=== PATIENT | male | born 1960 | race Caucasian/White ===

== ENCOUNTER 2017-08-15 00:39 | Emergency (ER) | payer OTHER ==
[2017-08-15 00:45] VITALS: TEMP 98.1
[2017-08-15] MEDS ORDERED: TETRACAINE 0.5% OPHTH DROPS 15 ML BTL LEFT EYE STA (00:55)
--- NOTE | 2017-08-15 00:58 | ED ---
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 The patient states that he does wear glasses at work but feels that it may have come off of his eyebrow. He states that he has had foreign body sensation which has gotten a bit worse until tonight he was not able sleep. He has also had some tearing of the left eye and redness. The patient states that he has not had a change in his vision, nor is he having pain. chief complaint: foreign body Onset/Timin -: hour(s) Onset Description: sudden Location: left eye Place: work If Injury: other Eye Symptoms: foreign body sensation, other (Tearing) Severity: moderate If Pain, Quality: other Consistency: constant Associated Symptoms: none Treatments Prior to Arrival: none - Related Data Home Medications Medication Instructions Recorded Confirmed Atenolol [Tenormin] 50 mg PO DAILY 09/11/14 07/31/17 Enalapril Maleate [Vasotec] 5 mg PO DAILY 09/11/14 07/31/17 Esomeprazole Magnesium [NexIUM] 40 mg PO DAILY PRN 09/11/14 07/31/17 Aspirin 81 mg PO HS 09/12/14 07/31/17 Glucosam/Sixto-Msm1/C/Rodney/Bosw 1 tab PO DAILY 07/31/17 07/31/17 [Glucosamine-Chondroitin Tablet] Previous Rx's Medication Instructions Recorded Erythromycin Ophth Oint [Romycin 1 cm LEFT EYE QID 5 Days gm 07/31/17 Ophth Oint] Allergies Allergy/AdvReac Type Severity Reaction Status Date / Time No Known Allergies Allergy Verified 08/15/17 00:45 Review of Systems ROS Statement: Those systems with pertinent positive or pertinent negative responses have been documented in the HPI. ROS Other: All systems not noted in ROS Statement are negative. Constitutional: Denies: fever, chills Eyes: Reports: as per HPI, eye discharge, other (Foreign body sensation). Denies: eye pain, vision change ENT: Denies: congestion Respiratory: Denies: cough Skin: Denies: rash Neurological: Denies: headache Past Medical History Past Medical History: GERD/Reflux, Hearing Disorder / Deafness, Hyperlipidemia, Hypertension, Myocardial Infarction ([place]), Osteoarthritis (OA) Additional Past Medical History / Comment(s): [facility]. HX [place] 2011, HAD BLOOD CLOT. HAS RINGING IN RT EAR. Last Myocardial Infarction Date:: 2011 History of Any Multi-Drug Resistant Organisms: MRSA Date of last positivie culture/infection: 2009 MDRO Source:: RT INNER THIGH Past Surgical History: Appendectomy, Heart Catheterization, Orthopedic Surgery Additional Past Surgical History / Comment(s): RT 5TH FINGER TENDON REPAIR. Past Anesthesia/Blood Transfusion Reactions: No Reported Reaction Past Psychological History: No Psychological Hx Reported Smoking Status: Former smoker Past Alcohol Use History: Occasional Past Drug Use History: None Reported - Past Family History Mother Family Medical History: Cancer General Exam Limitations: no limitations General appearance: alert, in no apparent distress Head exam: Present: atraumatic, normocephalic Eye exam: Present: PERRL, EOMI, conjunctival injection. Absent: scleral icterus , nystagmus, periorbital tenderness ENT exam: Present: normal oropharynx Neurological exam: Present: alert Skin exam: Present: warm, dry, intact, normal color. Absent: rash Course Vital Signs 08/15/17 00:43 Temperature 98.1 F Pulse Rate 69 Respiratory 20 Rate Blood Pressure 167/101 O2 Sat by Pulse 98 Oximetry Medical Decision Making - Medical Decision Making I performed a slit lamp examination, after instilling topical anesthesia. The patient has metallic foreign body in the 6 o'clock position of the left cornea, with an underlying rust ring. The metallic foreign body was scooped off of the surface of the eye. Then using the [place] brush, the rust ring was removed, without complication. I did irrigate the eye, with eversion of both upper and lower lids. Stain was applied, which did reveal the corneal abrasion. There is no residual foreign body area there is no streaming. The patient has had relief of symptoms. He does state that his tetanus shot is up-to-date. The patient states that he does have the antibiotic ointment issued to him with his last visit about 2 weeks ago, and he would like to use these and this seems suitable. Return parameters and appropriate follow-up discussed. Disposition Clinical Impression: Corneal foreign body, Corneal rust ring of left eye Disposition: HOME SELF-CARE Condition: Good Instructions: Eye Foreign Body (ED) Referrals: Pamela Temple MD [Primary Care Provider] - 1-2 days Selvin Morfin MD [STAFF PHYSICIAN] - 1-2 days
[2017-08-15 02:30] VITALS: BP 154/100; PULSE 65; RESP 18
== END 2017-08-15 02:24 | disposition home or self-care (01) ==
LOC: EC 00:39
DX: T15.02XA Foreign body in cornea, left eye, initial encounter (principal); I10 Essential (primary) hypertension; M19.90 Unspecified osteoarthritis, unspecified site; I25.2 Old myocardial infarction; Z87.891 Personal history of nicotine dependence; Z79.82 Long term (current) use of aspirin; Z79.899 Other long term (current) drug therapy; Y92.69 Other specified industrial and construction area as the place of occurrence of the external cause; Y93.89 Activity, other specified
CPT/HCPCS: 65222; 99283

== ENCOUNTER 2018-04-03 12:30 | Emergency (ER) | payer OTHER ==
[2018-04-03] MEDS ORDERED: HYDROcodone/APAP 5-325MG 1 EACH TAB PO STA (12:44)
[2018-04-03] MEDS ORDERED: LIDOCAINE 1% INJ 10MG/ML (20 ML MDV) SQ ONE (12:44)
--- NOTE | 2018-04-03 12:48 | ED ---
Fall HPI - General Source: patient, RN notes reviewed Mode of arrival: wheelchair Limitations: no limitations <Jose Antonio Edward - Last Filed: 04/03/18 15:06> <Gwyn Garza - Last Filed: 04/03/18 15:16> - General Chief Complaint: Fall Stated Complaint: Fall Time Seen by Provider: 04/03/18 12:39 - History of Present Illness Initial Comments: This a 57-year-old male presents emergency Department with chief complaint of a fall. Patient states he is on a scaffold and was approximately 8 feet high when he fell off. He states that it tipped over and he fell onto concrete. He states he landed awkwardly on his feet. Patient complains of bilateral ankle pain states there is no pain towards his heel and denies any low back pain. Patient denies any head injury no loss conscious. Patient does have a laceration to his right forearm states it's minimally painful. His tetanus up- to-date within last 5 years. Patient denies any chest pain, shortness breath, upper back pain, neck discomfort. (Jose Antonio Edward) - Related Data Home Medications Medication Instructions Recorded Confirmed Atenolol [Tenormin] 50 mg PO DAILY 09/11/14 04/03/18 Enalapril Maleate [Vasotec] 5 mg PO DAILY 09/11/14 04/03/18 Esomeprazole Magnesium [NexIUM] 40 mg PO DAILY 09/11/14 04/03/18 Aspirin 81 mg PO HS 09/12/14 04/03/18 Glucosam/Sixto-Msm1/C/Rodney/Bosw 1 tab PO DAILY 07/31/17 04/03/18 [Glucosamine-Chondroitin Tablet] Allergies Allergy/AdvReac Type Severity Reaction Status Date / Time No Known Allergies Allergy Verified 04/03/18 12:46 Review of Systems ROS Other: All systems not noted in ROS Statement are negative. <Jose Antonio Edward - Last Filed: 04/03/18 15:06> ROS Other: All systems not noted in ROS Statement are negative. <Gwyn Garza - Last Filed: 04/03/18 15:16> ROS Statement: Those systems with pertinent positive or pertinent negative responses have been documented in the HPI. Past Medical History Past Medical History: GERD/Reflux, Hearing Disorder / Deafness, Hyperlipidemia, Hypertension, Myocardial Infarction ([place]), Osteoarthritis (OA) Additional Past Medical History / Comment(s): [facility]. HX [place] 2011, HAD BLOOD CLOT. HAS RINGING IN RT EAR. Last Myocardial Infarction Date:: 2011 History of Any Multi-Drug Resistant Organisms: MRSA Date of last positivie culture/infection: 2009 MDRO Source:: RT INNER THIGH Past Surgical History: Appendectomy, Heart Catheterization, Orthopedic Surgery Additional Past Surgical History / Comment(s): RT 5TH FINGER TENDON REPAIR. Past Anesthesia/Blood Transfusion Reactions: No Reported Reaction Past Psychological History: No Psychological Hx Reported Smoking Status: Former smoker Past Alcohol Use History: Daily Past Drug Use History: Marijuana - Past Family History Mother Family Medical History: Cancer <Jose Antonio Edward - Last Filed: 04/03/18 15:06> General Exam Limitations: no limitations General appearance: alert, in no apparent distress ENT exam: Present: normal exam, mucous membranes moist Neck exam: Present: normal inspection, full ROM. Absent: tenderness, meningismus, lymphadenopathy Respiratory exam: Present: normal lung sounds bilaterally. Absent: respiratory distress, wheezes, rales, rhonchi, stridor Cardiovascular Exam: Present: regular rate, normal rhythm, normal heart sounds. Absent: systolic murmur, diastolic murmur, rubs, gallop, clicks Extremities exam: Present: other (Right forearm there is a V-shaped laceration approximately 3 cm in length along with superficial abrasion to his right elbow and additional superficial laceration to his right forearm he has no tenderness of the forearm has full range of motion of his right arm neurovascular intact patient has bilateral ankle tenderness on the medial and lateral malleolus with moderate swelling to the left there is no calcaneus tenderness there is no tenderness over the MTP region) Neurological exam: Present: alert, oriented X3, CN II-XII intact, reflexes normal. Absent: motor sensory deficit Skin exam: Present: warm, dry, intact, normal color. Absent: rash <Jose Antonio Edward - Last Filed: 04/03/18 15:06> Course <Jose Antonio Edward - Last Filed: 04/03/18 15:06> <Gwyn Garza - Last Filed: 04/03/18 15:16> Vital Signs 04/03/18 04/03/18 12:36 14:54 Temperature 98.5 F 97.0 F L Pulse Rate 70 61 Respiratory 20 18 Rate Blood Pressure 170/110 165/96 O2 Sat by Pulse 99 97 Oximetry - Reevaluation(s) Reevaluation #1: 04/03/18 15:16 Patient was earlier evaluated by myself, Dr. Garza. Patient updated on results. Case was discussed with orthopedics practitioner Marie who does recommend transfer. (Gwyn Garza) Procedures - Orthopedic Splinting/Casting Injury #1 Side: right Lower Extremity Injury Location: short leg, ankle, foot Lower Extremity Immobilizer: posterior splint, synthetic pre-padded splint Injury #2 Side: left Lower Extremity Injury Location: short leg, ankle Lower Extremity Immobilizer: posterior splint, synthetic pre-padded splint <Jose Antonio Edward - Last Filed: 04/03/18 15:06> Medical Decision Making <Jose Antonio Edward - Last Filed: 04/03/18 15:06> <Gwyn Garza - Last Filed: 04/03/18 15:16> - Medical Decision Making 57-year-old male presented for a fall. Patient has a right calcaneus fracture and right tib fracture. Patient also has left tib-fib fracture. Case discussed with Dr. Zarate at [facility] and the ER who accepts transfer. Patient was splinted and transferred EMS. (Jose Antonio Edward) Disposition - Out of Hospital Transfer - Req. Specs Out of Hospital Transfer - Requested Specifics: Other Emergency Center ( [facility]) <Jose Antonio Edward - Last Filed: 04/03/18 15:06> <Gwyn Garza - Last Filed: 04/03/18 15:16> Clinical Impression: Fall, Right calcaneal fracture, Right tibial fracture, Left tibial fracture Disposition: OTHER INSTITUTION NOT DEFINED Condition: Stable Referrals: Pamela Temple MD [Primary Care Provider] - 1-2 days
--- NOTE | 2018-04-03 13:13 | XR ---
Bilateral ankles HISTORY: Trauma and pain 3 views of each ankle submitted on a total of 6 images. Soft tissue swelling is noted bilaterally. Medial malleolar fracture with minimal displacement noted at the left ankle. No dislocation. Distal tibia shows cortical irregularity on the lateral view withi n the joint of the right ankle. Lucency also present within the calcaneus on the right, nondisplaced fracture not excluded. Bilateral plantar calcaneus spur is noted. IMPRESSION: Bilateral ankle fractures are noted as described. Additional findings above.
--- NOTE | 2018-04-03 14:25 | XR ---
Lumbar spine HISTORY: Back pain, trauma 3 views of the lumbar spine There is loss of disc height present L4-5, L5-S1 with associated vacuum phenomenon, spondylosis. Lumb ar vertebral bodies show preserved height and alignment. Bone mineralization is maintained. Suspect v ascular calcifications in the aortoiliac distribution. IMPRESSION: No fracture or subluxation. Degenerative disc disease.
--- NOTE | 2018-04-03 14:38 | CT ---
EXAMINATION TYPE: CT ankle RT wo con DATE OF EXAM: 04/03/2018 COMPARISON: Plain films dated 04/03/2018 HISTORY: Fall from height of 9 feet onto cement surface CT DLP: [address] of the right ankle with reconstruction imaging. TECHNIQUE: Unenhanced CT of the right ankle was performed with bone and soft tissue window settings s ubmitted in the axial coronal and sagittal planes. At a separate workstation 3-D TR imaging was obta ined. FINDINGS: Mildly comminuted virtually nondisplaced fracture involving the calcaneal body without intra-articula r extension. Additional nondisplaced fracture posterior malleolus. Intra-articular extension of poste rior malleolar component with cysts with tiny 3 mm loose body. Mild soft tissue swelling. No addition al fractures. Well-corticated ossific densities adjacent to the medial malleolus likely reflect remot e avulsion fracture. IMPRESSION: 1. Mildly comminuted grossly nondisplaced fracture involving the calcaneal body. 2. Posterior malleolar fracture.
[2018-04-03 15:00] VITALS: BP 165/96; PULSE 61; RESP 18; TEMP 97
[2018-04-03] MEDS ORDERED: HYDROcodone/APAP 7.5-325MG 1 EACH TAB PO ONE (15:17)
== END 2018-04-03 16:00 | disposition short-term general hospital (02) ==
LOC: EC 12:30
DX: S92.001A Unspecified fracture of right calcaneus, initial encounter for closed fracture (principal); S82.202A Unspecified fracture of shaft of left tibia, initial encounter for closed fracture; S82.201A Unspecified fracture of shaft of right tibia, initial encounter for closed fracture; S51.811A Laceration without foreign body of right forearm, initial encounter; S50.311A Abrasion of right elbow, initial encounter; I10 Essential (primary) hypertension; K21.9 Gastro-esophageal reflux disease without esophagitis; M19.90 Unspecified osteoarthritis, unspecified site; I25.2 Old myocardial infarction; Z87.891 Personal history of nicotine dependence; Z79.82 Long term (current) use of aspirin; Z79.899 Other long term (current) drug therapy; Z86.14 Personal history of Methicillin resistant Staphylococcus aureus infection; W12.XXXA Fall on and from scaffolding, initial encounter; Y92.69 Other specified industrial and construction area as the place of occurrence of the external cause
CPT/HCPCS: 73610; 72100; 73700; 99284; 29515; J2001

== ENCOUNTER 2021-04-05 12:43 | Observation (INO) | payer OTHER ==
[2021-04-05] MEDS ORDERED: ASPIRIN 81 MG PO STA (12:54)
[2021-04-05] MEDS ORDERED: MORPHINE SULFATE 4 MG/ML SYRINGE IVP STA (12:55)
--- NOTE | 2021-04-05 12:55 | ED ---
Chest Pain HPI - General Chief Complaint: Chest Pain Stated Complaint: Chest Pain Source: patient Mode of arrival: wheelchair Limitations: no limitations - History of Present Illness Initial Comments: 60-year-old male with past medical history of hypertension, hyperlipidemia, myocardial infarct presents emergency Department with reported chest pain. Patient began having chest pain 20 minutes prior to hospital arrival. He came to the hospital however ended up at the [id number] entrance. Staff evaluated the patient. They sat him down in a wheelchair when he had a syncopal episode. [facility] was called and the patient was rushed to our facility. The patient never lost pulses. He arrives to our facility alert and oriented 3. Reports to crushing chest pain which is substernal. Patient has not taken an aspirin yet today. Does have a history of previous [place] where he received angioplasty. Does not currently follow up with cardiology. He denies any shortness of crystal ath. No ripping or tearing sensation to his back. No unilateral numbness or weakness. 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 ROS Other: All systems not noted in ROS Statement are negative. EKG Findings - EKG Comments: EKG Findings:: EKG demonstrates sinus bradycardia with a ventricular rate of 57. [place] interval 142. QRS 94. QTC of 408. No acute ST segment elevations or depressions concerning for ischemic changes Past Medical History Past Medical History: GERD/Reflux, Hearing Disorder / Deafness, Hyperlipidemia, Hypertension, Myocardial Infarction ([place]), Osteoarthritis ([place]) Additional Past Medical History / Comment(s): [facility] HERN[facility]. HX [place] 2011, HAD BLOOD CLOT. HAS RINGING IN RT EAR. Last Myocardial Infarction Date:: 2011 History of Any Multi-Drug Resistant Organisms: MRSA Date of last positivie culture/infection: 2009 MDRO Source:: RT INNER THIGH Past Surgical History: Appendectomy, Heart Catheterization, Orthopedic Surgery Additional Past Surgical History / Comment(s): RT 5TH FINGER TENDON REPAIR. Past Anesthesia/Blood Transfusion Reactions: No Reported Reaction Past Psychological History: No Psychological Hx Reported Smoking Status: Former smoker Past Alcohol Use History: Daily Past Drug Use History: Marijuana - Past Family History Mother Family Medical History: Cancer General Exam Limitations: no limitations Course Vital Signs 04/05/21 04/05/21 04/05/21 12:44 13:04 14:03 Temperature 97.7 F Pulse Rate 58 L 56 L 52 L Respiratory 20 18 18 Rate Blood Pressure 192/121 186/106 195/110 O2 Sat by Pulse 98 99 97 Oximetry 04/05/21 04/05/21 14:58 15:29 Temperature Pulse Rate 53 L 54 L Respiratory 18 18 Rate Blood Pressure 214/125 175/112 O2 Sat by Pulse 97 Oximetry Chest Pain MDM - MDM Upon arrival patient is placed into trauma bay 1. Thorough history and physical exam is performed. IV is established. Laboratory studies are conducted. Patient was administered 4 chewable aspirins informal grams of morphine. Laboratory studies are reviewed and demonstrate a d-dimer of 0.84. Troponin is negative. Chest x-ray demonstrates no acute cardiac process. Because of elevated ER patient is sent for CT some threats no signs of coronary embolism. Results are discussed with patient. Did recommend admission for serial enzymes. Discussed case with Dr. edgar who agreed to admit the patient. Cardiology consulted. Patient awaiting a bed on the floor Disposition Clinical Impression: Chest pain Disposition: ADMITTED IP TO THIS HOSP Condition: Stable Is patient prescribed a controlled substance at d/c from ED?: No Referrals: Pamela Temple MD [Primary Care Provider] - 1-2 days Decision to Admit Reason: Admit from EC Decision Date: 04/05/21 Decision Time: 14:38
[2021-04-05 13:10] LABS: Basophils % (A) 0 %; Eosinophils # (A) 0.1 k/uL (0-0.7); Eosinophils % (A) 1 %; HCT 43.1 % (39.0-53.0); HGB 15.3 gm/dL (13.0-17.5); Lymphocytes # (A) 1.7 k/uL (1.0-4.8); Lymphocytes % (A) 19 %; MCH 30.7 pg (25.0-35.0); MCHC 35.4 g/dL (31.0-37.0); MCV 86.6 fL (80.0-100.0); Monocytes # (A) 0.7 k/uL (0-1.0); Monocytes % (A) 7 %; Neutrophils # (A) 6.6 k/uL (1.3-7.7); Neutrophils % (A) 71 %; Platelet Count 247 k/uL (150-450); RBC 4.98 m/uL (4.30-5.90); RDW 12.9 % (11.5-15.5); WBC 9.3 k/uL (3.8-10.6)
--- NOTE | 2021-04-05 13:26 | XR ---
EXAMINATION TYPE: XR chest 2V DATE OF EXAM: 04/05/2021 CLINICAL HISTORY: Chest Pain. TECHNIQUE: Frontal and lateral view of the chest. COMPARISON: 06/11/2012 FINDINGS: The cardiomediastinal silhouette is within normal limits for size. Pulmonary vasculature i s normal. There is no focal air space opacity. No pleural effusion. No pneumothorax seen. Old clavic ular fracture deformities. IMPRESSION: No acute cardiopulmonary process.
[2021-04-05 13:34] LABS: INR 0.9 (<1.2); Partial Thromboplastin Time 23.6 sec (22.0-30.0); Prothrombin Time 9.8 sec (9.0-12.0)
[2021-04-05 13:42] LABS: Albumin 4.4 g/dL (3.5-5.0); Calcium 9.9 mg/dL (8.4-10.2); Magnesium 1.9 mg/dL (1.6-2.3); Total Bilirubin 0.7 mg/dL (0.2-1.3); Total Protein 7.1 g/dL (6.3-8.2)
[2021-04-05 13:51] LABS: D-Dimer 0.84 mg/L FEU (<0.60)
[2021-04-05 13:55] LABS: Potassium 4.7 mmol/L (3.5-5.1)
--- NOTE | 2021-04-05 14:30 | CT ---
EXAMINATION TYPE: CT chest angio for PE DATE OF EXAM: 04/05/2021 COMPARISON: None HISTORY: Chest pain without Shortness of breath. CT DLP: 505.2 mGycm CONTRAST: CT chest with contrast and 3D reconstruction with MIP imaging is performed with IV Contrast, patient injected with 100 mL of Isovue 370. Contrast-enhanced CT of the chest was performed through the course of the pulmonary arteries with oleg g and mediastinal window settings submitted. 3D reconstruction with MIP imaging was also performed. PULMONARY ARTERIES: The pulmonary arteries and their major tributaries are patent. I do not see zohra dence for sizable filling defect to suggest pulmonary embolic process. LUNGS: The lungs are clear and free of infiltrate. No evidence for atelectasis. No pulmonary nodule or mass is detected. No pleural effusion. MEDIASTINUM: Thoracic aorta is of normal caliber,however, evaluation is limited given timing of the contrast bolus. If there is concern for thoracic aortic pathology consider KENIA. Correlate clinicall y . The heart is not enlarged. No evidence for mediastinal mass. No mediastinal lymph nodes greater than 1cm. HILAR STRUCTURES: No evidence for mass. No hilar lymph nodes greater than 1 cm. UPPER ABDOMEN: No significant abnormality is seen. IMPRESSION: 1. No evidence for Pulmonary embolism at this time.
[2021-04-05] MEDS ORDERED: NALOXONE 0.4 MG/ML 1 ML VIAL IV PRN (14:38)
[2021-04-05] MEDS ORDERED: NITROGLYCERIN SL TABS 0.4 MG TAB SUBLINGUAL STA (14:57)
[2021-04-05] MEDS ORDERED: hydrALAZINE HCL 20 MG/ML 1 ML VIAL IVP STA (15:43)
[2021-04-05] MEDS ORDERED: hydrALAZINE HCL 20 MG/ML 1 ML VIAL IVP PRN (18:27)
[2021-04-05] MEDS ORDERED: MORPHINE SULFATE 2 MG/ML SYRINGE IVP PRN (18:32)
--- NOTE | 2021-04-05 18:32 | P.HPIM ---
History of Present Illness H&P Date: 04/05/21 Chief Complaint: Chest pain Abhi Pendleton, is a year old male who presented to [facility] emergency room with a chief complaint of chest pain, patient describes a a pressure sensation in the left side of his chest without radiation to the jaw or the back no cough and plan the shortness of breath nausea vomiting or diaphoresis. 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 He was evaluated in the emergency room vital examination on presentation revealed a temperature of 97.7 pulse 58 respiration 20 blood pressure 192/121 pulse ox 98% on 2 L nasal cannula Laboratory data reveals a white blood count of 9.3 hemoglobin 15.3 platelet count 247 d-dimer 0.84 sodium 140 potassium 4.7 chloride 107 CO2 26 BUN 21 creatinine 1.08 glucose 107 troponin level was less than 0.012 Testing in the emergency room revealed CT angiogram of the chest was done in the emergency room and revealed no evidence of pulmonary embolism EKG was done and revealed sinus bradycardia otherwise normal EKG Patient was admitted to medical floor for further evaluation and treatment Past medical history is significant for history of coronary artery disease with myocardial infarction in 2012 as above, history of hypertension, history of hearing disorder, history of gastroesophageal reflux disease, previous history of MRSA infection, history of back pain was previous history of orthopedic surgery. On review of systems Patient was seen and examined on the medical floor, he is alert and oriented x 3 in no distress, he denies any complaints there is no fever or chills no headache or dizziness no chest pain no shortness of breath no palpitation no cough no nausea or vomiting no abdominal pain no diarrhea no blood in the stools no burning with urination no frequency or urgency and no hematuria, there is no weakness or numbness in any of the extremities no change in vision speech or gait. Past Medical History Past Medical History: GERD/Reflux, Hearing Disorder / Deafness, Hyperlipidemia, Hypertension, Myocardial Infarction (VT), Osteoarthritis (OA) Additional Past Medical History / Comment(s): UMB HERNIA. HX VT 2011, HAD BLOOD CLOT. HAS RINGING IN RT EAR. Last Myocardial Infarction Date:: 2011 History of Any Multi-Drug Resistant Organisms: MRSA Date of last positivie culture/infection: 2009 MDRO Source:: RT INNER THIGH Past Surgical History: Appendectomy, Heart Catheterization, Orthopedic Surgery Additional Past Surgical History / Comment(s): RT 5TH FINGER TENDON REPAIR. Past Anesthesia/Blood Transfusion Reactions: No Reported Reaction Past Psychological History: No Psychological Hx Reported Smoking Status: Former smoker Past Alcohol Use History: Daily Past Drug Use History: Marijuana - Past Family History Mother Family Medical History: Cancer Medications and Allergies Home Medications Medication Instructions Recorded Confirmed Type Esomeprazole Magnesium [NexIUM] 40 mg PO DAILY 09/11/14 04/05/21 History atenoloL [Tenormin] 50 mg PO DAILY 09/11/14 04/05/21 History Enalapril [Vasotec] 20 mg PO BID 04/05/21 04/05/21 History Allergies Allergy/AdvReac Type Severity Reaction Status Date / Time No Known Allergies Allergy Verified 04/05/21 13:23 Physical Exam Vitals: Vital Signs Temp Pulse Resp BP Pulse Ox 04/05/21 16:11 149/99 04/05/21 15:40 149/107 04/05/21 15:29 54 L 18 175/112 97 04/05/21 14:58 53 L 18 214/125 04/05/21 14:03 52 L 18 195/110 97 04/05/21 13:04 56 L 18 186/106 99 04/05/21 12:44 97.7 F 58 L 20 192/121 98 Intake and Output 04/05/21 04/05/21 04/05/21 06:59 14:59 22:59 Other: Weight 99.79 kg In general patient is alert and oriented x 3 in no distress HEENT head normocephalic and atraumatic Neck is supple no JVD no goiter no lymphadenopathy no carotid bruit Chest examination is clear to auscultation no crackles no wheezing Cardiac exam reveals regular heart sounds S1 and S2 no gallops no murmurs Abdomen is soft nontender no organomegaly with normal bowel sounds Extremity exam reveals no edema no cyanosis or clubbing Neurological examination reveals no gross focal deficits Results CBC & Chem 7: 04/05/21 12:58 04/05/21 12:58 Labs: Abnormal Lab Results - Last 24 Hours (Table) 04/05/21 04/05/21 Range/Units 12:58 12:58 D-Dimer 0.84 H (<0.60) mg/L FEU BUN 21 H (9-20) mg/dL Glucose 107 H (74-99) mg/dL Assessment and Plan Plan: Episodes of chest pain, patient is admitted to telemetry floor serial EKG and cardiac enzymes ordered cardiology consultation requested Underlying history of hypertension atenolol and enalapril resumed, blood pressure is quite elevated at this time will give IV hydralazine when necessary Underlying history of gastroesophageal reflux disease Underlying history of coronary artery disease with previous history of angioplasty and placement in 2011 At this time will continue with current management awaiting cardiac enzymes results awaiting cardiology input will follow in a.m.
[2021-04-05] MEDS: ACETAMINOPHEN TAB 500 MG TAB PO PRN (20:43)
[2021-04-05] MEDS ORDERED: lisinopriL 20 MG TAB PO SCH (21:00)
[2021-04-05] MEDS: MELATONIN 5 MG TABLET PO PRN (22:46)
[2021-04-06] MEDS: PANTOPRAZOLE 40 MG TABLET PO SCH (08:05)
[2021-04-06] MEDS ORDERED: atenoloL 50 MG TAB PO SCH (09:00)
[2021-04-06] MEDS: VALSARTAN 160 MG TAB PO SCH (09:02)
[2021-04-06] MEDS: hydroCHLOROthiazide 25 MG TAB PO SCH (09:02)
[2021-04-06 09:06] LABS: Basophils # (A) 0.04 X 10*3/uL (0.00-0.10); Basophils % (A) 0.6 %; HCT 43.8 % (39.6-50.0); HGB 14.6 g/dL (13.0-17.0); Lymphocytes # (A) 1.58 X 10*3/uL (0.90-5.00); Lymphocytes % (A) 23.5 %; MCH 29.5 pg (27.0-32.0); MCHC 33.3 g/dL (32.0-37.0); MCV 88.5 fL (80.0-97.0); Mean Platelet Volume 10.6 fL (9.5-12.2); Monocytes # (A) 0.81 X 10*3/uL (0.20-1.00); Monocytes % (A) 12.1 %; Neutrophils # (A) 4.05 X 10*3/uL (1.80-7.70); Neutrophils % (A) 60.2 %; Platelet Count 234 X 10*3/uL (140-440); RBC 4.95 X 10*6/uL (4.40-5.60); RDW 12.9 % (11.5-14.5); WBC 6.72 X 10*3/uL (4.50-10.00)
[2021-04-06 09:55] LABS: African American GFR (CKD) 94.4 (60.0-200.0); Albumin 3.9 g/dL (3.80-4.90); Albumin/Globulin Ratio 1.86 (1.60-3.17); Anion Gap 8.5 mmol/L (4.00-12.00); Calcium 8.9 mg/dL (8.7-10.3); Carbon Dioxide 26.5 mmol/L (21.6-31.8); Globulin 2.1 g/dL (1.6-3.3); Non-African American GFR(CKD) 81.4 (60.0-200.0); Potassium 4.3 mmol/L (3.5-5.5); Total Bilirubin 0.4 mg/dL (0.2-1.2)
--- NOTE | 2021-04-06 10:21 | P.CRDCN ---
History of Present Illness History of present illness: HISTORY OF PRESENTING ILLNESS This is a pleasant 60-year-old male past medical history significant for hypertension, gastroesophageal reflux disease, dyslipidemia, daily marijuana use, former nicotine dependence and chronic daily alcohol use. He denies prior history of coronary artery disease and does not follow in the office with a consumer insights specialist. We have been asked to see in consultation for chest pain. He states yesterday afternoon he had an acute onset of sharp pain in the mid- sternal region. The pain does not radiate anywhere. He denies associated shortness of breath, dizziness or palpitations. Initially the symptoms lasted about 20 minutes and did ultimately subside on their own. He had another episode once admitted to the observation unit. EKG at the time was unremarkable, telemetry revealed SR. His blood pressure on arrival was quite elevated, 192/121 and 214/125. He apparently was only taking his enalapirl once daily rather than BID. However, he also drinks daily. Serial EKGs have been sinus ace and SR with no ST or T-wave abnormalities. Chest x-ray is negative for an acute cardiopulmonary process. CTA is negative for pulmonary embolism. Laboratory data reviewed, CBC unremarkable, d-dimer 0.84, sodium 140 is in 4.3, creatinine 1.0, magnesium 1.9, cardiac enzymes negative 3, and T proBNP 164. Current daily cardiac medications include enalapril 20 mg twice a day and atenolol 50mg daily. REVIEW OF SYSTEMS At the time of my exam: CONSTITUTIONAL: Denies fever or chills. CARDIOVASCULAR: Denies chest pain, shortness of breath, orthopnea, PND or palpitations. RESPIRATORY: Denies cough. GASTROINTESTINAL: Denies abdominal pain, diarrhea, constipation, nausea or vomiting. MUSCULOSKELETAL: Denies myalgias. NEUROLOGIC: Denies numbness, tingling, headacbe or weakness. ENDOCRINE: Denies fatigue, weight change, polydipsia or polyurina. GENITOURINARY: Denies burning, hematuria or urgency with micturation. HEMATOLOGIC: Denies history of anemia or bleeding. PHYSICAL EXAMINATION Blood pressure 151/91 heart rate 60 afebrile and maintaining oxygen saturation on room air. CONSTITUTIONAL: No apparent distress. HEENT: Head is normocephalic. Pupils are equal, round. Sclerae anicteric. Mucous membranes of the mouth are moist. No JVD. No carotid bruit. CHEST EXAMINATION: Lungs are clear to auscultation. No chest wall tenderness is noted on palpation or with deep breathing. HEART EXAMINATION: Regular rate and rhythm. S1, S2 heard. No murmurs, gallops or rub. ABDOMEN: Soft, nontender. Positive bowel sounds. EXTREMITIES: 2+ peripheral pulses, no lower extremity edema and no calf tenderness. NEUROLOGIC EXAMINATION: Patient is awake, alert and oriented x3. ASSESSMENT Hypertensive emergency Chest pain Daily alcohol intake PLAN An acute coronary event has been ruled out. Pain is not angina, likely due to uncontrolled hypertension. No stress testing until his blood pressure is better controlled. This can occur as an outpatient. Obtain 2D echocardiogram and doppler study to assess cardiac structure and function. Change enalapril to valsartan 320 mg daily. Add hydrochlorothiazide 25 mg daily to his regimen. Continue atenolol as previously ordered. Discontinue IV hypertensives. Discussed alcohol cessation and explained that his blood pressure will be difficult to control as long as he is drinking heavily daily. Check lipid panel and treat accordingly. Thank you kindly for this consultation. Nurse Practitioner note has been reviewed, I agree with a documented findings and plan of care. Patient was seen and examined. Past Medical History Past Medical History: GERD/Reflux, Hearing Disorder / Deafness, Hyperlipidemia, Hypertension, Myocardial Infarction (AL), Osteoarthritis (OA) Additional Past Medical History / Comment(s): UMB HERNIA. HX AL 2011, HAD BLOOD CLOT. HAS RINGING IN RT EAR. Last Myocardial Infarction Date:: 2011 History of Any Multi-Drug Resistant Organisms: MRSA Date of last positivie culture/infection: 2009 MDRO Source:: RT INNER THIGH Past Surgical History: Appendectomy, Heart Catheterization, Orthopedic Surgery Additional Past Surgical History / Comment(s): RT 5TH FINGER TENDON REPAIR. Past Anesthesia/Blood Transfusion Reactions: No Reported Reaction Past Psychological History: No Psychological Hx Reported Smoking Status: Former smoker Past Alcohol Use History: Daily Past Drug Use History: Marijuana - Past Family History Mother Family Medical History: Cancer Medications and Allergies Home Medications Medication Instructions Recorded Confirmed Type Esomeprazole Magnesium [NexIUM] 40 mg PO DAILY 09/11/14 04/05/21 History atenoloL [Tenormin] 50 mg PO DAILY 09/11/14 04/05/21 History Enalapril [Vasotec] 20 mg PO BID 04/05/21 04/05/21 History Allergies Allergy/AdvReac Type Severity Reaction Status Date / Time No Known Allergies Allergy Verified 04/05/21 13:23 Physical Exam Vitals: Vital Signs Temp Pulse Pulse Resp BP BP Pulse Ox 04/06/21 07:00 97.4 F L 60 16 151/91 96 04/06/21 01:19 97.7 F 64 16 137/83 96 04/05/21 19:19 97.4 F L 66 16 147/88 97 04/05/21 17:40 97.6 F 66 16 177/100 96 04/05/21 17:18 98.4 F 64 18 134/89 98 04/05/21 16:11 149/99 04/05/21 15:40 149/107 04/05/21 15:29 54 L 18 175/112 97 04/05/21 14:58 53 L 18 214/125 04/05/21 14:03 52 L 18 195/110 97 04/05/21 13:04 56 L 18 186/106 99 04/05/21 12:44 97.7 F 58 L 20 192/121 98 Intake and Output 04/05/21 04/06/21 04/06/21 22:59 06:59 14:59 Other: Weight 99.79 kg Results 04/06/21 04:48 04/06/21 04:48 Cardiac Enzymes 04/05/21 04/05/21 04/05/21 Range/Units 12:58 12:58 16:50 AST 40 (17-59) U/L Troponin I <0.012 <0.012 (0.000-0.034) ng/mL 04/05/21 Range/Units 18:35 AST (17-59) U/L Troponin I <0.012 (0.000-0.034) ng/mL Coagulation 04/05/21 Range/Units 12:58 PT 9.8 (9.0-12.0) sec APTT 23.6 (22.0-30.0) sec CBC 04/05/21 Range/Units 12:58 WBC 9.3 (3.8-10.6) k/uL RBC 4.98 (4.30-5.90) m/uL Hgb 15.3 (13.0-17.5) gm/dL Hct 43.1 (39.0-53.0) % Plt Count 247 (150-450) k/uL Comprehensive Metabolic Panel 04/05/21 Range/Units 12:58 Sodium 140 (137-145) mmol/L Potassium 4.7 (3.5-5.1) mmol/L Chloride 107 (98-107) mmol/L Carbon Dioxide 26 (22-30) mmol/L BUN 21 H (9-20) mg/dL Creatinine 1.08 (0.66-1.25) mg/dL Glucose 107 H (74-99) mg/dL Calcium 9.9 (8.4-10.2) mg/dL AST 40 (17-59) U/L ALT 34 (4-49) U/L Alkaline Phosphatase 74 (38-126) U/L Total Protein 7.1 (6.3-8.2) g/dL Albumin 4.4 (3.5-5.0) g/dL Current Medications Generic Name Dose Route Start Last Admin Trade Name Freq PRN Reason Stop Dose Admin Acetaminophen 500 mg 04/05/21 18:32 04/05/21 20:43 Acetaminophen Tab 500 Mg Tab PO 500 mg Q4HR PRN Administration Fever and/ or Pain Atenolol 50 mg 04/06/21 09:00 Atenolol 50 Mg Tab PO DAILY GETACHEW Lisinopril 40 mg 04/05/21 21:00 04/05/21 22:46 Lisinopril 20 Mg Tab PO 40 mg BID GETACHEW Administration Melatonin 10 mg 04/05/21 21:53 04/05/21 22:46 Melatonin 5 Mg Tablet PO 10 mg HS PRN Administration Insomnia Morphine Sulfate 2 mg 04/05/21 18:32 04/05/21 18:48 Morphine Sulfate 2 Mg/Ml Syringe IVP 2 mg Q4H PRN Administration Pain/Discomfort Naloxone HCl 0.2 mg 04/05/21 14:38 Naloxone 0.4 Mg/Ml 1 Ml Vial IV Q2M PRN Opioid Reversal Pantoprazole Sodium 40 mg 04/06/21 07:30 Pantoprazole 40 Mg Tablet PO DAILY@0730 GETACHEW Intake and Output 04/05/21 04/06/21 04/06/21 22:59 06:59 14:59 Other: Weight 99.79 kg 04/05/21 12:58 04/05/21 12:58
[2021-04-06 12:34] LABS: Chol/HDL Ratio 3.72; LDL Cholesterol,Calculated 88.8 mg/dL (0.0-131.0); VLDL Calculation 47.2 mg/dL (5.00-40.00)
--- NOTE | 2021-04-06 13:49 | ECHOF ---
Referral Reason:cp MEASUREMENTS -------- HEIGHT: 182.9 cm WEIGHT: 99.8 kg BP: 151/91 IVSd: 1.6 cm (0.6 - 1.1) LVIDd: 4.3 cm (3.9 - 5.3) LVPWd: 1.4 cm (0.6 - 1.1) EDV(Teich): 82 ml IVSs: 1.8 cm LVIDs: 3.2 cm LVPWs: 1.8 cm %IVS Thck: 16 % ESV(Teich): 40 ml EF(Teich): 51 % %FS: 26 % SV(Teich): 42 ml LALs A4C: 6.4 cm LAAs A4C: 22.3 cm LAESV A-L A4C: 67 ml LAESV MOD A4C: 65 ml LALs A2C: 5.7 cm LAAs A2C: 27.3 cm LAESV A-L A2C: 111 ml LAESV MOD A2C: 106 ml LAESV(A-L): 91 ml LAESV Index (A-L): 40.91 ml/m Ao Diam: 3.1 cm (2.0 - 3.7) LA Diam: 4.5 cm (2.7 - 3.8) AV Cusp: 1.9 cm (1.5 - 2.6) EPSS: 0.2 cm MV E George: 0.64 m/s MV DecT: 235 ms MV Dec Gage: 2.7 m/s MV A George: 0.91 m/s MV E/A Ratio: 0.71 MV PHT: 68 ms AV Vmax: 1.70 m/s AV maxP.61 mmHg AR Vmax: 5.37 m/s AR maxP.20 mmHg AR PHT: 878 ms AR Dec Time: 3026 ms AR Dec Gage: 1.8 m/s TR Vmax: 2.51 m/s TR maxP.29 mmHg RAP: 5.00 mmHg RVSP: 30.29 mmHg MV EF SLOPE: 81.10 mm/s (70 - 150) MV EXCURSION: 19.13 mm (> 18.000) FINDINGS -------- Sinus rhythm. This was a technically good study. The left ventricular size is normal. There is moderate concentric left ventricular hypertrophy. O verall left ventricular systolic function is normal with, an EF between 55 - 60 %. The right ventricle is normal in size. LA is severely dilated >40 ml/m2 The right atrial size is normal. There is mild aortic valve sclerosis. There is mild aortic regurgitation. Mild mitral regurgitation is present. Mild tricuspid regurgitation present. Right ventricular systolic pressure is normal at < 35 mmHg. There is no pulmonic regurgitation present. There is no pericardial effusion. CONCLUSIONS -------- 1. The left ventricular size is normal. 2. There is moderate concentric left ventricular hypertrophy. 3. Overall left ventricular systolic function is normal with, an EF between 55 - 60 %. 4. The right ventricle is normal in size. 5. LA is severely dilated >40 ml/m2 6. The right atrial size is normal. 7. There is mild aortic valve sclerosis. 8. There is mild aortic regurgitation. 9. Mild mitral regurgitation is present. 10. Mild tricuspid regurgitation present. 11. There is no pericardial effusion. THREADER: Jailyn Austin RDCS
[2021-04-06] MEDS: ACETAMINOPHEN TAB 500 MG TAB PO PRN (14:30)
[2021-04-06] MEDS: amLODIPine 5 MG TAB PO SCH (15:28)
[2021-04-06] MEDS: atenoloL 50 MG TAB PO SCH (21:55)
[2021-04-06] MEDS: MELATONIN 5 MG TABLET PO PRN (21:58)
[2021-04-07 07:30] VITALS: BP 145/86; PULSE 56; RESP 17; TEMP 97.9
[2021-04-07] MEDS: VALSARTAN 160 MG TAB PO SCH (07:58)
[2021-04-07] MEDS: atenoloL 50 MG TAB PO SCH (07:59)
[2021-04-07] MEDS: hydroCHLOROthiazide 25 MG TAB PO SCH (08:00)
[2021-04-07] MEDS: PANTOPRAZOLE 40 MG TABLET PO SCH (08:00)
[2021-04-07] MEDS: amLODIPine 5 MG TAB PO SCH (08:00)
[2021-04-07] MEDS ORDERED: atenoloL 50 MG TAB PO SCH (09:00)
--- NOTE | 2021-04-07 09:16 | P.PN ---
Subjective Progress Note Date: 04/06/21 Abhi Pendleton, is a year old male who presented to [facility] emergency room with a chief complaint of chest pain, patient describes a a pressure sensation in the left side of his chest without radiation to the jaw or the back no cough and plan the shortness of breath nausea vomiting or di aphoresis. 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 He was evaluated in the emergency room vital examination on presentation revealed a temperature of 97.7 pulse 58 respiration 20 blood pressure 192/121 pulse ox 98% on 2 L nasal cannula Laboratory data reveals a white blood count of 9.3 hemoglobin 15.3 platelet count 247 d-dimer 0.84 sodium 140 potassium 4.7 chloride 107 CO2 26 BUN 21 creatinine 1.08 glucose 107 troponin level was less than 0.012 Testing in the emergency room revealed CT angiogram of the chest was done in the emergency room and revealed no evidence of pulmonary embolism EKG was done and revealed sinus bradycardia otherwise normal EKG Patient was admitted to medical floor for further evaluation and treatment Past medical history is significant for history of coronary artery disease with myocardial infarction in 2011 as above, history of hypertension, history of hearing disorder, history of gastroesophageal reflux disease, previous history of MRSA infection, history of back pain was previous history of orthopedic surgery. On review of systems Patient was seen and examined on the medical floor, he is alert and oriented x 3 in no distress, he denies any complaints there is no fever or chills no headache or dizziness no chest pain no shortness of breath no palpitation no cough no nausea or vomiting no abdominal pain no diarrhea no blood in the stools no burning with urination no frequency or urgency and no hematuria, there is no weakness or numbness in any of the extremities no change in vision speech or gait. On 04/06/2021 patient is alert and oriented 3. Blood pressure medications being adjusted per cardiology services.. Per cardiology acute coronary event has been ruled out 2-D echo pending. At this time patient denies chest pain or shortness breath. Patient denies nausea vomiting or diarrhea. Patient denies any urinary burning or frequency Objective - Vital Signs Vital signs: Vital Signs Temp 98.3 F 04/06/21 14:12 Pulse 58 L 04/06/21 14:12 Resp 18 04/06/21 14:12 BP 156/93 04/06/21 15:30 Pulse Ox 96 04/06/21 14:12 Intake & Output 04/05/21 04/06/21 04/06/21 18:59 06:59 18:59 Intake Total 1000 Output Total 1000 Balance 0 Weight 99.79 kg Intake: Oral 1000 Output: Urine 1000 - Exam In general patient is alert and oriented x 3 in no distress HEENT head normocephalic and atraumatic Neck is supple no JVD no goiter no lymphadenopathy no carotid bruit Chest examination is clear to auscultation no crackles no wheezing Cardiac exam reveals regular heart sounds S1 and S2 no gallops no murmurs Abdomen is soft nontender no organomegaly with normal bowel sounds Extremity exam reveals no edema no cyanosis or clubbing Neurological examination reveals no gross focal deficits - Labs CBC & Chem 7: 04/06/21 04:48 04/06/21 04:48 Labs: Abnormal Lab Results - Last 24 Hours (Table) 04/06/21 04/06/21 Range/Units 04:03 04:48 BUN/Creatinine Ratio 23.00 H (12.00-20.00) Ratio Total Protein 6.0 L (6.2-8.2) g/dL Triglycerides 236.0 H (0.0-149.0) mg/dL VLDL Cholesterol, Calc 47.20 H (5.00-40.00) mg/dL Assessment and Plan Plan: Episodes of chest pain, patient is admitted to telemetry floor serial EKG and cardiac enzymes ordered cardiology consultation requested GERD acute coronary event has been ruled out Underlying history of hypertension atenolol and enalapril resumed, blood pressure is quite elevated at this time will give IV hydralazine when necessary. Blood pressure medications being adjusted per cardiology services Underlying history of gastroesophageal reflux disease Underlying history of coronary artery disease with previous history of ang ioplasty and placement in 2011
--- NOTE | 2021-04-07 09:17 | P.DS ---
Providers Date of admission: 04/05/21 14:38 Expected date of discharge: 04/07/21 Attending physician: Rashid Joyner Consults: 04/05/21 14:40 Consult Physician Urgent Consulting Provider: [facility] Consult Reason/Comments: acute chest pain, possible acs Do you want consulting provider notified?: Yes Primary care physician: Pamela [facility] Hospital Course: Discharge diagnosis Episodes of chest pain, patient is admitted to telemetry floor serial EKG and cardiac enzymes ordered cardiology consultation requested GERD acute coronary event has been ruled out Underlying history of hypertension atenolol and enalapril resumed, blood pressure is quite elevated at this time will give IV hydralazine when necessary. Blood pressure medications being adjusted per cardiology services Underlying history of gastroesophageal reflux disease Underlying history of coronary artery disease with previous history of angioplasty and placement in 2012 Hospital course Abhi Pendleton, is a year old male who presented to [facility] emergency room with a chief complaint of chest pain, patient describes a a press ure sensation in the left side of his chest without radiation to the jaw or the back no cough and plan the shortness of breath nausea vomiting or diaphoresis. 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 He was evaluated in the emergency room vital examination on presentation revealed a temperature of 97.7 pulse 58 respiration 20 blood pressure 192/121 pulse ox 98% on 2 L nasal cannula Laboratory data reveals a white blood count of 9.3 hemoglobin 15.3 platelet count 247 d-dimer 0.84 sodium 140 potassium 4.7 chloride 107 CO2 26 BUN 21 creatinine 1.08 glucose 107 troponin level was less than 0.012 Testing in the emergency room revealed CT angiogram of the chest was done in the emergency room and revealed no evidence of pulmonary embolism EKG was done and revealed sinus bradycardia otherwise normal EKG Patient was admitted to medical floor for further evaluation and treatment Past medical history is significant for history of coronary artery disease with myocardial infarction in 2012 as above, history of hypertension, history of hearing disorder, history of gastroesophageal reflux disease, previous history of MRSA infection, history of back pain was previous history of orthopedic surgery. On review of systems Patient was seen and examined on the medical floor, he is alert and oriented x 3 in no distress, he denies any complaints there is no fever or chills no headache or dizziness no chest pain no shortness of breath no palpitation no cough no nausea or vomiting no abdominal pain no diarrhea no blood in the stools no burning with urination no frequency or urgency and no hematuria, there is no weakness or numbness in any of the extremities no change in vision speech or gait. On 04/06/2021 patient is alert and oriented 3. Blood pressure medications being adjusted per cardiology services.. Per cardiology acute coronary event has been ruled out 2-D echo pending. At this time patient denies chest pain or shortness breath. Patient denies nausea vomiting or diarrhea. Patient denies any urinary burning or frequency On 04/07/2021 patient is alert and oriented 3. Discussed case with cardiology services. Per cardiac team medications have been adjusted and sent per cardiology medications include valsartan and amlodipine. Patient to follow up with cardiology services in 2 weeks and PCP for further management of essential hypertension. At this time patient denies chest pain or shortness of breath. Patient denies nausea vomiting or diarrhea. Patient denies any urinary burning or frequency Patient Condition at Discharge: Stable Plan - Discharge Summary Discharge Rx Participant: No New Discharge Prescriptions: New Valsartan [Diovan] 320 mg PO DAILY #180 tab amLODIPine [Norvasc] 5 mg PO DAILY #90 tab Continue Esomeprazole Magnesium [NexIUM] 40 mg PO DAILY Discontinued atenoloL [Tenormin] 50 mg PO DAILY Enalapril [Vasotec] 20 mg PO BID Discharge Medication List Esomeprazole Magnesium [NexIUM] 40 mg PO DAILY 09/11/14 [History] Valsartan [Diovan] 320 mg PO DAILY #180 tab 04/07/21 [Rx] amLODIPine [Norvasc] 5 mg PO DAILY #90 tab 04/07/21 [Rx] Follow up Appointment(s)/Referral(s): Luis Carlin MD [STAFF PHYSICIAN] - 2 Weeks (office will call patient with appointment ) Pamela Temple MD [Primary Care Provider] - 1-2 days Activity/Diet/Wound Care/Special Instructions: Activity as tolerated Diet heart healthy Discharge Disposition: HOME SELF-CARE
--- NOTE | 2021-04-07 10:06 | P.PN ---
Subjective HISTORY OF PRESENTING ILLNESS This is a pleasant 60-year-old male past medical history significant for hypertension, gastroesophageal reflux disease, dyslipidemia, daily marijuana use, former nicotine dependence and chronic daily alcohol use. He denies prior history of coronary artery disease and does not follow in the office with a ca rdiologist. We have been asked to see in consultation for chest pain. He states yesterday afternoon he had an acute onset of sharp pain in the mid-sternal region. The pain does not radiate anywhere. He denies associated shortness of breath, dizziness or palpitations. Initially the symptoms lasted about 20 minutes and did ultimately subside on their own. He had another episode once admitted to the observation unit. EKG at the time was unremarkable, telemetry revealed SR. His blood pressure on arrival was quite elevated, 192/121 and 214/125. He apparently was only taking his enalapirl once daily rather than BID. However, he also drinks daily. Serial EKGs have been sinus ace and SR with no ST or T-wave abnormalities. Chest x-ray is negative for an acute cardiopulmonary process. CTA is negative for pulmonary embolism. Laboratory data reviewed, CBC unremarkable, d-dimer 0.84, sodium 140 is in 4.3, creatinine 1.0, magnesium 1.9, cardiac enzymes negative 3, and T proBNP 164. Current [facility] cardiac medications include enalapril 20 mg twice a day and atenolol 50mg daily. 04/07/2021 Pt is seen and examined sitting up in the recliner in no acute distress. He denies any further episodes of chest pain. Breathing is stable. He denies palpitations or dizziness. Blood pressure 145/86 heart rate 56 afebrile and maintaining oxygen saturation on room air. Echocardiogram reveals preserved LV function with mild MR and mild TR. Laboratory data reviewed, LDL 88, HDL 50, triglycerides 236 and total cholesterol 186. PHYSICAL EXAMINATION CONSTITUTIONAL: No apparent distress. HEENT: Head is normocephalic. Pupils are equal, round. Sclerae anicteric. Mucous membranes of the mouth are moist. No JVD. No carotid bruit. CHEST EXAMINATION: Lungs are clear to auscultation. No chest wall tenderness is noted on palpation or with deep breathing. HEART EXAMINATION: Regular rate and rhythm. S1, S2 heard. No murmurs, gallops or rub. EXTREMITIES: 2+ peripheral pulses, no lower extremity edema and no calf tenderness. ASSESSMENT Hypertensive emergency Chest pain Daily alcohol intake PLAN Recommend home medications of valsartan 320 mg and amlodipine 5 mg daily only. Discussed with the patient in detail to let these medications work over the next 1 week and follow up in the office with Dr. Carlin for further adjustments. He can be discharged home. He has also been counseled again regarding alcohol cessation. Nurse Practitioner note has been reviewed, I agree with a documented findings and plan of care. Patient was seen and examined. Objective - Vital Signs Vital signs: Vital Signs Temp 97.9 F 04/07/21 07:00 Pulse 56 L 04/07/21 07:00 Resp 17 04/07/21 07:00 BP 145/86 04/07/21 07:00 Pulse Ox 94 L 04/07/21 07:00 Intake & Output 04/06/21 04/07/21 04/07/21 18:59 06:59 18:59 Intake Total 1000 180 Output Total 1000 Balance 0 180 Intake: Oral 1000 180 Output: Urine 1000 Other: # Voids 2 - Labs CBC & Chem 7: 04/06/21 04:48 04/06/21 04:48 Labs: Abnormal Lab Results - Last 24 Hours (Table) 04/06/21 Range/Units 04:03 Triglycerides 236.0 H (0.0-149.0) mg/dL VLDL Cholesterol, Calc 47.20 H (5.00-40.00) mg/dL
== END 2021-04-07 09:45 | disposition home or self-care (01) ==
LOC: SUPCPDRO 12:43 → EC 12:43 → 6NMEDSUR 14:38
PROVIDERS: ADMIT Internal Medicine; ATTEND Internal Medicine
DX: R07.89 Other chest pain (principal); I16.1 Hypertensive emergency; I11.9 Hypertensive heart disease without heart failure; R55 Syncope and collapse; I25.10 Atherosclerotic heart disease of native coronary artery without angina pectoris; I08.3 Combined rheumatic disorders of mitral, aortic and tricuspid valves; E78.5 Hyperlipidemia, unspecified; I25.2 Old myocardial infarction; Z79.899 Other long term (current) drug therapy; H91.90 Unspecified hearing loss, unspecified ear; K21.9 Gastro-esophageal reflux disease without esophagitis; M19.90 Unspecified osteoarthritis, unspecified site; H93.11 Tinnitus, right ear; K42.9 Umbilical hernia without obstruction or gangrene; Z87.891 Personal history of nicotine dependence; Z86.14 Personal history of Methicillin resistant Staphylococcus aureus infection; Z90.49 Acquired absence of other specified parts of digestive tract; Z98.890 Other specified postprocedural states; Z95.5 Presence of coronary angioplasty implant and graft; Z72.89 Other problems related to lifestyle; Z80.9 Family history of malignant neoplasm, unspecified
CPT/HCPCS: 96376; 93005 ×2; 96374; 99285; 36415; 93306; 85379; 83880; 80061; 80053 ×2; 83735; 84484; 85025 ×2; 85610; 85730; 71046; 71275; G0378 ×3; J2270 ×2; Q9967

== ENCOUNTER → 2021-08-25 | Outpatient (CLI) | payer OTHER ==
[2021-08-25 15:34] LABS: Albumin 4.5 g/dL (3.5-5.0); Calcium 10.1 mg/dL (8.4-10.2); Potassium 4.1 mmol/L (3.5-5.1); Total Bilirubin 0.5 mg/dL (0.2-1.3); Total Protein 7.5 g/dL (6.3-8.2)
[2021-08-25 15:52] LABS: INR 0.9 (<1.2); Partial Thromboplastin Time 25.2 sec (22.0-30.0); Prothrombin Time 9.7 sec (9.0-12.0)
[2021-08-25 15:56] LABS: Appearance,Urine Clear (Clear); Bilirubin,Urine Negative (Negative); Blood,Urine Negative (Negative); Color,Urine Yellow; Glucose,Urine (UA) Negative (Negative); HCT 44.4 % (39.0-53.0); HGB 15.4 gm/dL (13.0-17.5); Ketones,Urine Negative (Negative); Leukocyte Esterase,Urine Negative (Negative); MCH 30.4 pg (25.0-35.0); MCHC 34.6 g/dL (31.0-37.0); MCV 87.9 fL (80.0-100.0); Mean Platelet Volume 7.9; Nitrite,Urine Negative (Negative); PH, Urine 5.5 (5.0-8.0); Platelet Count 321 k/uL (150-450); Protein,Urine Negative (Negative); RBC 5.05 m/uL (4.30-5.90); RDW 12.8 % (11.5-15.5); Specific Gravity,Urine 1.023 (1.001-1.035); Urobilinogen,Urine <2.0 mg/dL (<2.0); WBC 8.8 k/uL (3.8-10.6)
== END | disposition home or self-care (01) ==
LOC: LABPAT 14:14
PROVIDERS: ATTEND Orthopaedic Surgery Sports Medicine
DX: Z01.812 Encounter for preprocedural laboratory examination (principal)
CPT/HCPCS: 80053; 81003; 85027; 85610; 85730; 87070

== ENCOUNTER 2021-09-09 12:53 | Day surgery (SDC) | payer OTHER ==
[2021-09-07 10:55] VITALS: BMI 31.8
[~2021-09-09 12:53] MED LIST: ACETAMINOPHEN TAB 500 MG TAB PO PRN; DEXAMETHASONE SOD PHOSPHATE 4 MG/ML 1 ML VIAL IV ONE; GABAPENTIN 300 MG CAP PO PRN; HYDROcodone/APAP 5-325MG 1 EACH TAB PO PRN; HYDROmorphone 0.2 MG/1 ML SYRINGE IVP PRN; HYDROmorphone 0.5 MG/0.5 ML SYRINGE IVP PRN; HYDROmorphone 1 MG/ML 1 ML SYRINGE IVP PRN; LACTATED RINGERS 1,000 ML IV SCH; LIDOCAINE 1% (10MG/ML) FOR IV START INTRADERMA PRN; METOCLOPRAMIDE 5 MG/ML 2 ML VIAL IVP PRN; MIDAZOLAM 2 MG/2 ML VIAL IV PRN; ONDANSETRON 4 MG/2 ML VIAL IVP ONE; ONDANSETRON 4 MG/2 ML VIAL IVP PRN; SENNOSIDES-DOCUSATE SODIUM 1 EACH TAB PO PRN; TEMAZEPAM 15 MG CAP PO PRN; TRANEXAMIC ACID 1,000 MG in SODIUM CHLORIDE 0.9% 100 ML IVPB PRN; diphenhydrAMINE 25 MG CAP PO PRN; hydrOXYzine pamoate 25 MG CAP PO PRN
[2021-09-09] MEDS: LACTATED RINGERS 1,000 ML IV SCH ×2 (13:45→16:00)
[2021-09-09 14:06] VITALS: RESP 16
[2021-09-09] MEDS ORDERED: MIDAZOLAM 2 MG/2 ML VIAL IVP ONE (14:32)
[2021-09-09] MEDS ORDERED: .fentaNYL (PF) 50 MCG/ML 2 ML AMP ONE (15:58)
[2021-09-09] MEDS ORDERED: DEXAMETHASONE SOD PHOSPHATE 4 MG/ML 1 ML VIAL ONE (15:58)
[2021-09-09] MEDS ORDERED: ePHEDrine 50 MG/ML 1 ML AMP ONE (15:58)
[2021-09-09] MEDS ORDERED: TRANEXAMIC ACID 1,000 MG/10 ML VIAL ONE (15:58)
[2021-09-09] MEDS ORDERED: ROPIVACAINE 5 MG/ML 30 ML VIAL ONE (15:58)
[2021-09-09] MEDS ORDERED: ROCURONIUM 10 MG/ML (5 ML VIAL) IV ONE (15:58)
[2021-09-09] MEDS ORDERED: SUCCINYLCHOLINE CHLORIDE 100 MG/5 ML SYR IV ONE (15:58)
[2021-09-09] MEDS ORDERED: PHENYLEPHRINE-0.9% NACL SYG 1,000 MCG/10 ML SYRINGE ONE (15:58)
[2021-09-09] MEDS ORDERED: PROPOFOL 10 MG/ML 20 ML VIAL IV ONE (15:58)
[2021-09-09] MEDS ORDERED: LIDOCAINE 1% INJ 10MG/ML (20 ML MDV) ONE (15:58)
[2021-09-09] MEDS ORDERED: GLYCOPYRROLATE 0.2 MG/ML 2 ML VIAL ONE (15:58)
[2021-09-09] MEDS ORDERED: NEOSTIGMINE 1 MG/ML 10 ML VIAL ONE (15:58)
[2021-09-09] MEDS ORDERED: SODIUM CHLORIDE 0.9% 100 ML BAG ONE (15:58)
[2021-09-09] MEDS ORDERED: ceFAZolin 3,000 MG in SODIUM CHLORIDE 0.9% IRRIGATIO 3,000 ML IRRIGATION ONE (16:29)
[2021-09-09] MEDS ORDERED: VANCOMYCIN 1,000 MG VIAL MISCELLANE ONE (16:54)
[2021-09-09] MEDS ORDERED: LACTATED RINGERS 1,000 ML IV ONE (17:34)
--- NOTE | 2021-09-09 19:20 | XR ---
PROCEDURE: XR shoulder limited LT - 1V DATE AND TIME: 09/09/2021 7:09 PM CLINICAL INDICATION: PHH; post op hardware TECHNIQUE: Department protocol COMPARISON: None FINDINGS: Single AP view obtained, showing the prosthesis and left shoulder. No unexpected postoperat alexandro findings. IMPRESSION: Postoperative hardware radiograph.
--- NOTE | 2021-09-09 19:44 | P.ANPRN ---
Procedure Note - Anesthesia - Nerve Block Performed Left Interscalene Single Time Out Performed: Yes Date of Procedure: 09/09/21 Procedure Start Time: 14:31 Procedure Stop Time: 14:37 Location of Patient: PreOp Indication: Acute Post-Operative Pain, Requested by Surgeon Sedation Type: Sedate with meaningful contact maintained Preparation: Sterile Prep Position: Supine Needle Types: Pajunk Needle Gauge: 21 Ultrasound used to visualize needle placement: Yes Ultrasound used to observe medication spread: Yes Blood Aspirated: No Pain Paresthesia on Injection Noted: No Resistance on Injection: Normal Image Stored and Saved: Yes Events: Uneventful and Well Tolerated (ropi .5% 20cc plus dexamethasone 4mg)
--- NOTE | 2021-09-09 23:42 | OP ---
OPERATIVE REPORT DATE OF PROCEDURE: 09/09/2021. SURGEON: Nash Corrales M.D. CRUCIBLE FURNACE TENDER: Solomon uGaman PA-C PREOPERATIVE DIAGNOSIS: Left shoulder osteoarthrosis. POSTOPERATIVE DIAGNOSIS: Left shoulder osteoarthrosis. OPERATION: Left total shoulder arthroplasty. ANESTHESIA: General endotracheal. ESTIMATED BLOOD LOSS: 150 mL. DRAINS: One deep drain. COMPLICATIONS: None apparent. DISPOSITION: Post-Anesthesia Care Unit INDICATIONS: Abhi is a very pleasant 61-year-old gentleman with long-standing left shoulder pain. Workup including x-rays revealed advanced osteoarthrosis of the left shoulder. At this point it was felt that he has failed conservative management and he would like to proceed with operative intervention. The risks of procedure were discussed with him in detail. These risks include but are not limited to risk of infection, nerve damage, bleeding, pain, instability in the shoulder, loosening of the implants and deep infection. There is also a very small risk of deep vein thrombosis which could lead to fatal pulmonary embolism. The patient understood the risks. All of his questions with regard to the risks of the procedure were answered to his satisfaction. Appropriate informed consent was obtained. DESCRIPTION OF THE PROCEDURE: The patient was identified in the preoperative holding area. Surgical site was marked by both the patient and myself. He was given 2 grams of Ancef IV for prophylactic purposes. He was then transferred to the operative suite. He was placed supine on the operating room table. A general anesthetic was then administered and dosed per the anesthesia department without apparent complication. Examination under anesthesia of the left shoulder was then performed. He had elevation to 140 degrees. External rotation to the side was to 45 degrees. The patient was then placed into the beach chair position, well padded in preparation for surgery. Great care was taken to ensure that his cervical spine was in neutral alignment, well padded and maintained that way throughout the operative procedure. Great care was also taken to ensure that his legs were appropriately padded as well. The patient's left upper extremity was then prepped and draped in usual sterile fashion. A standard surgical pause was undertaken to ensure that we were operating on the correct site and that appropriate preoperative antibiotics had been given. All staff in the room were in agreement and we proceeded. The acromion, AC joint, clavicle and coracoid were marked with a surgical pen. A planned incision starting at the level of the clavicle and extending distally over the deltopectoral interval approximately 1 cm lateral to the coracoid was marked with a surgical pen. The incision was then made with a 10 blade scalpel. Dissection was carried down sharply to the deltoid fascia. The deltopectoral interval was then identified at the level of the clavicle. A small band retractor was then placed under the proximal deltoid. We then released the deltoid fascia on the lateral aspect of the cephalic vein. The vein was protected and left in its bed medially. I then identified the clavipectoral fascia. This was incised proximally to the level of the coracoacromial ligament. The coracoacromial ligament was left intact. I then used my finger to spread the interval between the conjoint tendon and the subscapularis. I felt for the axillary nerve, which was readily palpable. I then cleared the subacromial and subdeltoid spaces of bursal scar tissue. I then utilized a Quijano retractor to hold the deltoid and expose the humeral head. I then proceeded to release the subscapularis in the anterior inferior shoulder capsule. The rotator cuff was inspected. It was found to be intact. The rotator interval was identified. The course of the biceps tendon was also identified. At this point, I did tenodese the biceps to the proximal aspect of the humerus. This was done with two 0 Vicryl sutures. I then released the rotator interval. The rotator interval was released at the base of the coracoid and then out laterally. The subscapularis and the capsule were then released intratendinously. The subscapularis and capsule release extended distally in a lazy-S fashion approximately 1 cm medial to the biceps tendon. I then continued to release the capsule along the inferior neck in a vertical fashion to approximately the 6 o'clock position. Great care was taken to ensure that the capsule was always visualized as it was released, as to avoid injuring the axillary nerve. I then brought a Wagoner inseamer with the arm externally rotated and abducted. I continued to release the capsule inferomedially to approximately the 4 o'clock position. The inferior osteophytes were now removed as well. This was done with a rongeur. I then proceeded with preparation of the humerus. I removed all the goat's calzada osteophytes. I then removed the subchondral plate from the superior aspect of the humeral head utilizing a large rongeur. I then used the starting reamer to gain access to the humeral canal. This was approximately 1 cm medial to the rotator cuff insertion and 1 cm posterior to the bicipital groove. I then prepared the humeral canal with hand reaming. I started with a 6 mm reamer, increased incrementally until firm resistance was encountered at 12 mm. The reamer handle was then left in place. I then utilized a humeral resection guide set at 30 degrees of retrotorsion. Cutting block was then set approximately 1-2 mm above the insertion of the rotator cuff. I then proceeded to osteotomize the head with an oscillating saw. I removed the resection guide and then completed the osteotomy. I then proceeded with trial stem placement. I then proceeded to broach the canal starting with a 6 mm broach and then incrementally increased up to a 12 mm broach. The 12 mm broach was then left in place. I then proceeded with trial reduction. I started with a 46 x 18 mm head. This seemed a little loose. I then increased to a 46 x 21 x 50 mm head, which seemed to fit very nicely. The head fit opposite the glenoid. The rotator cuff was not tented. Internal rotation was to 90 degrees. Elevation was 150 degrees and translation was one half of the head in neutral rotation and inferiorly it was one quarter of the head in 15 to 20 degrees of abduction. I then removed the trial head. The broach was left in place to protect the humeral canal. I then proceeded with exposure of the glenoid. At this point I removed the remaining intraarticular part of the long head of the biceps tendon. A bone hook was then utilized to pull the humerus out laterally. I inspected the joint for any loose bodies. The condition of the rotator cuff was again inspected. It was in excellent condition. A Bhattman retractor was then placed on the posterior glenoid rim. The arm was placed in approximately 80 degrees of abduction and in slight flexion on the Wagoner stand. I then proceeded to remove the hypertrophic labrum to definitively identify the actual glenoid. I then selected the size of the glenoid. A size 4 glenoid seemed to fit very nicely. I then utilized a starting drill to make the centering hole. I then proceeded to ream the glenoid fossa. This was done with a size 4 reamer. The reaming was taken down to paprika type sign. I had a nice bleeding surface. There was a bit of posterior inferior wear. As such, I preferentially took off slightly more anterior glenoid bone with the reaming. I then proceeded to place the glenoid drill holes. The peripheral drill holes were then placed, and the center hole was drilled as well. I then placed a trial size 4 glenoid and it fit very nicely onto the real glenoid. I then proceeded with cementing. I Waterpik'd the wound and the bone. The drill holes were then packed with Ray-Shane sponges. One pack of antibiotic bone cement was mixed on the back table by the medical technician assistant. The drill holes were then packed with cement utilizing a 20 mL syringe. These were packed very tightly. The center hole did not have any cement put in it. A small amount of cement was then placed on the posterior aspect of the real glenoid component as well. I then impacted the real glenoid component into place. It was a Biomet size 4 pegged glenoid component with a Regenerex central peg. Excess cement was then removed utilizing a Dingle elevator. Pressure was held onto the real glenoid component until the cement had hardened. I then removed the Bhattman retractor. I then proceeded with humeral component trial reduction with the real glenoid. The 46 x 21 x 50 head was then placed back onto the stem. Again this was taken through a trial. The head fit opposite the glenoid. The rotator cuff was not tented. Elevation was to 150 degrees. Internal rotation was to 90 degrees and translation was one half of the head in neutral rotation and one quarter of the head in 15 to 20 degrees of abduction. I then had the assisted sales representative open a 46 x 21 x 50 mm real head, size 12 Biomet mini stem. The stem was then impacted into the canal. The trunnion was dried and the real head was then impacted onto the dry Rojas taper onto the real stem. The shoulder was then reduced. I then proceeded with closure. Again the wound was thoroughly irrigated with sterile saline solution with antibiotic added. The rotator interval was closed with multiple 0 Vicryl interrupted suture. The subscapularis was closed with interrupted #2 FiberWire suture. A deep drain was then placed and brought out superiorly away from the incision. Approximately 500 mg of vancomycin powder was then placed deep. Prior to closing the deltopectoral interval, I did feel for the axillary nerve, which was readily palpable. The deltopectoral interval was then closed with 0 Vicryl interrupted suture. I then placed the remaining 500 mg of vancomycin powder in the subcutaneous tissue. The subcutaneous tissue was then closed with 2-0 Vicryl interrupted suture and the skin was closed with a running 3-0 Quill suture. Sterile compressive dressing was applied. The patient's left upper extremity was placed into a standard sling. All sponge and needle counts were deemed correct prior to closure. The patient tolerated the procedure without apparent complication. He was transferred to the recovery room in stable condition. MMODL / IJN: [id number] /
[2021-09-10] MEDS: LACTATED RINGERS 1,000 ML IV SCH ×2 (00:05→08:05)
[2021-09-10 08:49] VITALS: BP 146/85; PULSE 98; TEMP 97.5
[2021-09-10] MEDS ORDERED: hydroCHLOROthiazide 25 MG TAB PO SCH (09:00)
[2021-09-10] MEDS ORDERED: VALSARTAN 160 MG TAB PO SCH (09:00)
[2021-09-10] MEDS ORDERED: amLODIPine 5 MG TAB PO SCH (09:00)
[2021-09-10 09:30] LABS: Basophils # (A) 0.02 X 10*3/uL (0.00-0.10); Basophils % (A) 0.1 %; Eosinophils # (A) 0 X 10*3/uL (0.04-0.35); Eosinophils % (A) 0 %; HCT 43.8 % (39.6-50.0); HGB 14.3 g/dL (13.0-17.0); Lymphocytes # (A) 0.94 X 10*3/uL (0.90-5.00); Lymphocytes % (A) 5.4 %; MCH 29.5 pg (27.0-32.0); MCHC 32.6 g/dL (32.0-37.0); MCV 90.3 fL (80.0-97.0); Mean Platelet Volume 9.9 fL (9.5-12.2); Monocytes # (A) 1.24 X 10*3/uL (0.20-1.00); Monocytes % (A) 7.1 %; Neutrophils # (A) 15.15 X 10*3/uL (1.80-7.70); Neutrophils % (A) 86.5 %; Platelet Count 301 X 10*3/uL (140-440); RBC 4.85 X 10*6/uL (4.40-5.60); RDW 12.3 % (11.5-14.5); WBC 17.51 X 10*3/uL (4.50-10.00)
[2021-09-10 09:58] LABS: ALT 31 U/L (4-49); AST 32 U/L (17-59); African American GFR (CKD) 85 (>60 ml/min/1.73 sqM); Albumin 3.9 g/dL (3.5-5.0); Albumin/Globulin Ratio 1.4; Alkaline Phosphatase 58 U/L (38-126); Anion Gap 11 mmol/L; Blood Urea Nitrogen 20 mg/dL (9-20); Calcium 9.6 mg/dL (8.4-10.2); Carbon Dioxide 21 mmol/L (22-30); Chloride 103 mmol/L (98-107); Globulin 2.7 g/dL; Glucose 152 mg/dL (74-99); Non-African American GFR(CKD) 74 (>60 ml/min/1.73 sqM); Potassium 4.5 mmol/L (3.5-5.1); Sodium 135 mmol/L (137-145); Total Bilirubin 0.6 mg/dL (0.2-1.3); Total Protein 6.6 g/dL (6.3-8.2)
--- NOTE | 2021-09-10 10:18 | P.CONS ---
History of Present Illness - Reason for Consult Consult date: 09/10/21 Medical Management Requesting physician: Nash Corrales - Chief Complaint OA to the left shoulder - History of Present Illness This is a 61-year-old male patient of Dr. Temple. Patient presented for an elective left shoulder arthroplasty with Dr. Corrales on 09/09/2021 Patient has past medical history of ongoing left shoulder pain. Additional medical history includes GERD, hyperlipidemia, hypertension, SD and osteoarthritis. Patient denies history of DVT, PE, atrial fibrillation or stroke. Patient has been up ambulating. Patient denies chest pain or shortness breath. Patient denies nausea vomiting or diarrhea. Patient denies any urinary burning or frequency. White blood cell is elevated at 17.51 but patient did receive Decadron during procedure. Patient denies any acute complaints and remains afebrile. Patient anticipating to be discharged home per cardiothoracic surgery today. Dressing is clean dry and intact in arms is in sling. Patient reports minimum pain Review of Systems Please refer to HPI otherwise unremarkable Past Medical History Past Medical History: GERD/Reflux, Hearing Disorder / Deafness, Hyperlipidemia, Hypertension, Myocardial Infarction (SD), Osteoarthritis (OA) Additional Past Medical History / Comment(s): TINNITUS RIGHT EAR, SD 2011-STATES BLOOD CLOT OR PLACQUE., LEAKY HEART VALVE., HTN EPISODE IN MARCH 2021 WITH SEVERE CHEST PAIN., FOLLOWS LOW SODIUM DIET., HX OF COVID X2. Last Myocardial Infarction Date:: 2011 History of Any Multi-Drug Resistant Organisms: MRSA Year Discovered:: 2009 MDRO Source:: RT INNER THIGH Past Surgical History: Appendectomy, Heart Catheterization, Orthopedic Surgery Additional Past Surgical History / Comment(s): RT 5TH FINGER TENDON REPAIR., LEFT ANKLE FX WITH HARDWARE. Past Anesthesia/Blood Transfusion Reactions: No Reported Reaction Past Psychological History: No Psychological Hx Reported Smoking Status: Former smoker Past Alcohol Use History: Daily Additional Past Alcohol Use History / Comment(s): USUALLY DRINKS 6 PACK OR 7, 8 OR 9 BEERS DAILY. sometimes none. QUIT SMOKING 24 YEARS AGO (1996), SMOKED 1 PPD, STARTED SMOKING AGE 17. Past Drug Use History: Marijuana Additional Drug Use History / Comment(s): USES DAILY - Past Family History Mother Family Medical History: Cancer Medications and Allergies Home Medications Medication Instructions Recorded Confirmed Type Esomeprazole Magnesium [NexIUM] 40 mg PO DAILY 09/11/14 09/07/21 History Acetaminophen Tab [Tylenol] 650 mg PO DIRECTED PRN 09/07/21 09/07/21 History Valsartan [Diovan] 160 mg PO BID 09/07/21 09/07/21 History amLODIPine [Norvasc] 5 mg PO BID 09/07/21 09/07/21 History hydroCHLOROthiazide 25 mg PO DAILY 09/07/21 09/07/21 History Docusate [Colace] 100 mg PO BID #60 capsule 09/09/21 Rx Doxycycline Hyclate 100 mg PO BID #10 tab 09/09/21 Rx HYDROcodone/APAP 7.5-325MG [[place] 1 - 2 each PO Q6HR PRN #56 tab 09/09/21 Rx 7.5-325] Allergies Allergy/AdvReac Type Severity Reaction Status Date / Time No Known Allergies Allergy Verified 09/07/21 10:11 Physical Exam Vitals: Vital Signs Temp Pulse Pulse Pulse Resp BP Pulse Ox 09/10/21 08:00 97.5 F L 98 16 146/85 95 09/10/21 02:03 97.6 F 94 106/70 94 L 09/09/21 21:40 90 121/78 09/09/21 21:16 16 09/09/21 21:10 80 118/78 09/09/21 20:56 82 111/75 91 L 09/09/21 20:41 97.5 F L 86 116/78 95 09/09/21 20:02 78 16 120/74 94 L 09/09/21 19:30 72 16 119/80 94 L 09/09/21 19:15 72 16 119/80 94 L 09/09/21 19:01 66 16 118/81 94 L 09/09/21 18:45 70 16 129/79 94 L 09/09/21 18:27 97.1 F L 88 16 125/88 100 09/09/21 14:47 73 16 114/67 97 09/09/21 13:45 98.1 F 80 16 128/79 96 Intake and Output 09/09/21 09/10/21 09/10/21 22:59 06:59 14:59 Intake Total 1151 Output Total 150 0 Balance 1001 0 Intake: IV 1151 Output: Drainage 0 Left Shoulder 0 Estimated Blood Loss 150 Other: Voiding Method Toilet Urinal # Voids 1 # Bowel Movements 0 Weight 99 kg Head normocephalic Neck supple Lungs clear to auscultation bilaterally no wheezing or crackles Heart regular rate and rhythm S1-S2, no rub or gallop Abdomen is soft nontender nondistended positive bowel sounds no hepatosplenomegaly Extremities no edema. Left shoulder dressing clean dry and intact Neuro alert and orientated to 3 Results CBC & Chem 7: 09/10/21 06:12 09/10/21 06:12 Labs: Abnormal Lab Results - Last 24 Hours (Table) 09/10/21 09/10/21 Range/Units 06:12 06:12 WBC 17.51 H (4.50-10.00) X 10*3/uL Immature Gran # 0.16 H (0.00-0.04) X 10*3/uL Neutrophils # 15.15 H (1.80-7.70) X 10*3/uL Monocytes # 1.24 H (0.20-1.00) X 10*3/uL Eosinophils # 0 L (0.04-0.35) X 10*3/uL Sodium 135 L (137-145) mmol/L Carbon Dioxide 21 L (22-30) mmol/L Glucose 152 H (74-99) mg/dL Assessment and Plan Assessment: 1. Osteoarthritis to left shoulder status post left shoulder arthroplasty with Dr. Corrales on 09/09/2021. patient is postop day 1 2. History of essential hypertension. Home meds resumed 3. History of hyperlipidemia 4. History of SD 5. History of GERD 6. Leukocytosis secondary to steroids. Patient remains afebrile denies any acute complaints Thank you for this consultation we will continue to follow patient closely throughout stay Time with Patient: Greater than 30 (Greater than 60% of the total time spent in counseling and coordination of care)
--- NOTE | 2021-09-10 10:29 | P.DS ---
Providers Expected date of discharge: 09/10/21 Attending physician: Nash Corrales Consults: 09/09/21 12:38 Consult Physician Routine Consulting Provider: Rashid Joyner Consult Reason/Comments: post op medical management Do you want consulting provider notified?: Yes Primary care physician: Pamela Temple - Discharge Diagnosis(es) (1) Osteoarthritis of left shoulder Patient was admitted to the OR on 09/09/2021 to undergo a left total shoulder arthroplasty. He had failed conservative measures as an outpatient and desired to proceed with elective surgery after given informed consent. He underwent the above procedure which she tolerated well without complication. Postoperative hospital course has remained without complication. On day of discharge he is afebrile, vital signs stable, labs within acceptable ranges, tolerating by mouth meds and diet, voiding without difficulty, positive flatus, denies abdominal pain or calf pain, pain is controlled on oral pain medication and has no new complaints. Wound is benign, neurovascular status is intact, calves are soft and nontender, abdomen soft and nontender. Review of systems is negative for numbness, tingling, fever, chills, chest pain, shortness of breath, nausea, vomiting, dizziness, headaches, slurred speech or other. Current Visit: Yes Status: Acute Priority: Medium Procedures: Left total shoulder arthroplasty Patient Condition at Discharge: Good Plan - Discharge Summary Discharge Rx Participant: Yes New Discharge Prescriptions: New Doxycycline Hyclate 100 mg PO BID #10 tab HYDROcodone/APAP 7.5-325MG [[place] 7.5-325] 1 - 2 each PO Q6HR PRN #56 tab PRN Reason: Pain Docusate [Colace] 100 mg PO BID #60 capsule No Action Esomeprazole Magnesium [NexIUM] 40 mg PO DAILY amLODIPine [Norvasc] 5 mg PO BID Valsartan [Diovan] 160 mg PO BID hydroCHLOROthiazide 25 mg PO DAILY Acetaminophen Tab [Tylenol] 650 mg PO DIRECTED PRN PRN Reason: Pain Discharge Medication List Esomeprazole Magnesium [NexIUM] 40 mg PO DAILY 09/11/14 [History] Acetaminophen Tab [Tylenol] 650 mg PO DIRECTED PRN 09/07/21 [History] Valsartan [Diovan] 160 mg PO BID 09/07/21 [History] amLODIPine [Norvasc] 5 mg PO BID 09/07/21 [History] hydroCHLOROthiazide 25 mg PO DAILY 09/07/21 [History] Docusate [Colace] 100 mg PO BID #60 capsule 09/09/21 [Rx] Doxycycline Hyclate 100 mg PO BID #10 tab 09/09/21 [Rx] HYDROcodone/APAP 7.5-325MG [[place] 7.5-325] 1 - 2 each PO Q6HR PRN #56 tab 09/09/21 [Rx] Follow up Appointment(s)/Referral(s): Nash Corrales MD [STAFF PHYSICIAN] - 10 Days Activity/Diet/Wound Care/Special Instructions: maintain sling non-weight bearing May shower after 3 days if no bleeding Keep wound clean and dry Take meds as directed F/U with Dr. Corrales in office Discharge Disposition: HOME WITH HOME HEALTH SERVICES
== END 2021-09-10 12:02 | disposition home health service (06) ==
LOC: OR 12:53 → 4SSUR 20:38 → OR 09-10 12:02
PROVIDERS: ATTEND Orthopaedic Surgery Sports Medicine
DX: K21.9 Gastro-esophageal reflux disease without esophagitis (principal); M93.91 Osteochondropathy, unspecified of shoulder; M19.012 Primary osteoarthritis, left shoulder; Z79.899 Other long term (current) drug therapy; Z87.891 Personal history of nicotine dependence
CPT/HCPCS: 64415; 76942; 80053; 85025; 88300; 87635; 73020; 23472; C1776; C1713; J2250; J3370; J1100; J2710; J0690 ×3; J2405; J2001; J3010; J2795; J2370; J0330; J2704

== ENCOUNTER → 2023-02-10 | Outpatient (CLI) | payer OTHER ==
--- NOTE | 2023-02-10 08:45 | US ---
EXAMINATION TYPE: US mass soft tissue chest/back DATE OF EXAM: 02/10/2023 COMPARISON: Chest CT April 05, 2021 CLINICAL INDICATION: Male, 62 years old with history of R22.2 SWELLING, MASS AND LUMP TRUNK; Lump rig ht mid back. TECHNIQUE: FINDINGS: Hyperechoic area of lump measuring 4.3 x 1.4 x 4.2 cm. There is deep ill-defined hyperechoic oval-shaped area at site of palpable abnormality favoring a johanna p subcutaneous lipoma or other benign etiology. IMPRESSION: As above.
== END | disposition home or self-care (01) ==
LOC: RADUSWWP 08:04
PROVIDERS: ATTEND Family Medicine
DX: R22.2 Localized swelling, mass and lump, trunk (principal)

== ENCOUNTER 2023-02-28 10:20 | Observation (INO) | payer OTHER ==
[2023-02-28] MEDS ORDERED: ASPIRIN 81 MG PO STA (10:30)
[2023-02-28] MEDS ORDERED: NITROGLYCERIN OINT 1 INCH/GM PACKET TOPICAL STA (10:48)
[2023-02-28 11:13] LABS: Basophils % (A) 0 %; Eosinophils # (A) 0.1 k/uL (0-0.7); Eosinophils % (A) 2 %; HCT 45.1 % (39.0-53.0); HGB 15.3 gm/dL (13.0-17.5); Lymphocytes # (A) 1.4 k/uL (1.0-4.8); Lymphocytes % (A) 18 %; MCH 30.2 pg (25.0-35.0); MCV 88.8 fL (80.0-100.0); Mean Platelet Volume 8.1; Monocytes # (A) 0.5 k/uL (0-1.0); Monocytes % (A) 7 %; Neutrophils # (A) 5.4 k/uL (1.3-7.7); Neutrophils % (A) 70 %; Platelet Count 273 k/uL (150-450); RBC 5.08 m/uL (4.30-5.90); RDW 12.7 % (11.5-15.5); WBC 7.8 k/uL (3.8-10.6)
[2023-02-28 11:23] LABS: ALT 41 U/L (4-49); AST 37 U/L (17-59); African American GFR (CKD) >90 (>60 ml/min/1.73 sqM); Albumin 4.2 g/dL (3.5-5.0); Alkaline Phosphatase 89 U/L (38-126); Anion Gap 8 mmol/L; Blood Urea Nitrogen 21 mg/dL (9-20); Calcium 9.1 mg/dL (8.4-10.2); Carbon Dioxide 26 mmol/L (22-30); Chloride 104 mmol/L (98-107); Glucose 117 mg/dL (74-99); Magnesium 2.1 mg/dL (1.6-2.3); Non-African American GFR(CKD) 84 (>60 ml/min/1.73 sqM); Potassium 3.7 mmol/L (3.5-5.1); Sodium 138 mmol/L (137-145); Total Bilirubin 0.8 mg/dL (0.2-1.3); Total Protein 6.9 g/dL (6.3-8.2)
[2023-02-28 11:35] LABS: Partial Thromboplastin Time 24.3 sec (22.0-30.0); Prothrombin Time 10.1 sec (9.0-12.0)
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
[2023-02-28] MEDS ORDERED: NITROGLYCERIN SL TABS 0.4 MG TAB SUBLINGUAL PRN ×2 (12:39→17:08)
--- NOTE | 2023-02-28 12:42 | ED ---
Chest Pain HPI - General Chief Complaint: Chest Pain Stated Complaint: Chest Pain Time Seen by Provider: 02/28/23 10:30 Source: patient, RN notes reviewed Mode of arrival: ambulatory Limitations: no limitations - History of Present Illness Initial Comments: 62-year-old male presents emergency Department with chief complaint of chest pain. Patient states started just prior arrival. Patient states she's taken nitro with seemed to help alleviate homicidal this pain. Patient states he saw his PCP yesterday for blood pressure medication adjustment. Patient states that he's had a prior NH, uncontrolled blood pressure issues. Patient denies any fevers or chills no cough or cold like symptoms no trauma no rashes. - Related Data Home Medications Medication Instructions Recorded Confirmed Esomeprazole Magnesium [NexIUM] 40 mg PO DAILY 09/11/14 09/07/21 Acetaminophen Tab [Tylenol] 650 mg PO DIRECTED PRN 09/07/21 09/07/21 Valsartan [Diovan] 160 mg PO BID 09/07/21 09/07/21 amLODIPine [Norvasc] 5 mg PO BID 09/07/21 09/07/21 hydroCHLOROthiazide 25 mg PO DAILY 09/07/21 09/07/21 Previous Rx's Medication Instructions Recorded Docusate [Colace] 100 mg PO BID #60 capsule 09/09/21 Doxycycline Hyclate 100 mg PO BID #10 tab 09/09/21 HYDROcodone/APAP 7.5-325MG [[place] 1 - 2 each PO Q6HR PRN #56 tab 09/09/21 7.5-325] Allergies Allergy/AdvReac Type Severity Reaction Status Date / Time No Known Allergies Allergy Verified 02/28/23 10:27 Review of Systems ROS Statement: Those systems with pertinent positive or pertinent negative responses have been documented in the HPI. ROS Other: All systems not noted in ROS Statement are negative. EKG Findings - EKG Comments: EKG Findings:: EKG 4-10:33 sinus rhythm rate of 79 TX 147 QRS 98 QT/QTC 377/411 - EKG Results: EKG: interpreted by ROSSD Past Medical History Past Medical History: GERD/Reflux, Hearing Disorder / Deafness, Hyperlipidemia, Hypertension, Myocardial Infarction ([place]), Osteoarthritis (OA) Additional Past Medical History / Comment(s): TINNITUS RIGHT EAR, [place] 2011-STATES BLOOD CLOT OR PLACQUE., LEAKY HEART VALVE., HTN EPISODE IN MARCH 2021 WITH SEVERE CHEST PAIN., FOLLOWS LOW SODIUM DIET., HX OF COVID X2. Last Myocardial Infarction Date:: 2011 History of Any Multi-Drug Resistant Organisms: MRSA Date of last positivie culture/infection: 2009 MDRO Source:: RT INNER THIGH Past Surgical History: Appendectomy, Heart Catheterization, Orthopedic Surgery Additional Past Surgical History / Comment(s): RT 5TH FINGER TENDON REPAIR., LEFT ANKLE FX WITH HARDWARE. Past Anesthesia/Blood Transfusion Reactions: No Reported Reaction Past Psychological History: No Psychological Hx Reported Smoking Status: Former smoker Past Alcohol Use History: Daily Past Drug Use History: Marijuana - Past Family History Mother Family Medical History: Cancer General Exam Limitations: no limitations General appearance: alert, in no apparent distress Head exam: Present: atraumatic, normocephalic, normal inspection Eye exam: Present: normal appearance, PERRL, EOMI. Absent: scleral icterus, conjunctival injection, periorbital swelling ENT exam: Present: normal exam, normal oropharynx, mucous membranes moist Neck exam: Present: normal inspection. Absent: tenderness, meningismus, lymphadenopathy Respiratory exam: Present: normal lung sounds bilaterally. Absent: respiratory distress, wheezes, rales, rhonchi, stridor Cardiovascular Exam: Present: regular rate, normal rhythm, normal heart sounds. Absent: systolic murmur, diastolic murmur, rubs, gallop, clicks GI/Abdominal exam: Present: soft, normal bowel sounds. Absent: distended, tenderness, guarding, rebound, rigid Course Vital Signs 02/28/23 02/28/23 02/28/23 10:24 11:12 11:48 Temperature 98.1 F Pulse Rate 95 67 Pulse Rate [ 85 Bilateral] Respiratory 22 18 Rate Blood Pressure 149/87 135/95 O2 Sat by Pulse 97 97 Oximetry 02/28/23 12:00 Temperature Pulse Rate 64 Pulse Rate [ Bilateral] Respiratory Rate Blood Pressure O2 Sat by Pulse Oximetry Chest Pain MDM - MDM Was pt. sent in by a medical professional or institution (PATRICIA Canela, PIN STICKER, urgent care, hospital, or fci...) When possible be specific @ -No Did you speak to anyone other than the patient for history (EMS, parent, family, police, friend...)? What history was obtained from this source @ -No Did you review nursing and triage notes (agree or disagree)? Why? @ -I reviewed and agree with nursing and triage notes Were old charts reviewed (outside hosp., previous admission, EMS record, old EKG, old radiological studies, urgent care reports/EKG's, fci records)? Report findings @ -No old charts were reviewed Differential Diagnosis (chest pain, altered mental status, abdominal pain women, abdominal pain men, vaginal bleeding, weakness, fever, dyspnea, syncope, headache, dizziness, GI bleed, back pain, seizure, CVA, palpatations, mental health, musculoskeletal)? @ -Differential Chest Pain: Stable Angina, Unstable Angina, STEMI, NSTEMI Aortic Dissection, Pneumothorax, Musculoskeletal, Esophageal Spasm GERD, Cholecystitis, Pancreatitis, Zoster, this is not meant to be an all-inclusive list. able EKG interpreted by me (3pts min.). @ -As above X-rays interpreted by me (1pt min.). @ -Chest x-ray shows no acute cardiopulmonary process CT interpreted by me (1pt min.). @ -None done U/S interpreted by me (1pt. min.). @ -None done What testing was considered but not performed or refused? (CT, X-rays, U/S, labs)? Why? @ -None What meds were considered but not given or refused? Why? @ -None Did you discuss the management of the patient with other professionals (professionals i.e. , PA, PIN STICKER, lab, RT, psych nurse, social sciences professor, vacuum bottle assembler, teacher, retail loss prevention officer, case reviewer)? Give summary @ -Dr. Joyner for admission for cardiac rule out with repeat troponin, cardiac evaluation Was smoking cessation discussed for >3mins.? @ -No Was critical care preformed (if so, how long)? @ -No Were there social determinants of health that impacted care today? How? (Homelessness, low income, unemployed, alcoholism, drug addiction, transportation, low edu. Level, literacy, decrease access to med. care, fpc, rehab)? @ -No Was there de-escalation of care discussed even if they declined (Discuss DNR or withdrawal of care, Hospice)? DNR status @ -No What co-morbidities impacted this encounter? (DM, HTN, Smoking, COPD, CAD, Cancer, CVA, ARF, Chemo, Hep., AIDS, mental health diagnosis, sleep apnea, morbid obesity)? @ -Hypertension, CAD Was patient admitted / discharged? Hospital course, mention meds given and route, prescriptions, significant lab abnormalities, going to OR and other pertinent info. @ -Admitted to observation for cardiac rule out initial workup including labs, EKG and chest x-ray is no acute process patient is improved after Nitropaste symptoms at all result. Undiagnosed new problem with uncertain prognosis? @ -No Drug Therapy requiring intensive monitoring for toxicity (Heparin, Nitro, Insulin, Cardizem)? @ -No Were any procedures done? @ -No Diagnosis/symptom? @ -Chest pain Acute, or Chronic, or Acute on Chronic? @ -Acute Uncomplicated (without systemic symptoms) or Complicated (systemic symptoms)? @ -Complicated Side effects of treatment? @ -No Exacerbation, Progression, or Severe Exacerbation? @ -No Poses a threat to life or bodily function? How? (Chest pain, [place], NH, pneumonia, PE, COPD, DKA, ARF, appy, cholecystitis, CVA, Diverticulitis, Homicidal, Suicidal, threat to staff... and all critical care pts) @ -Yes at risk for cardiac arrest Disposition Clinical Impression: Chest pain Disposition: ADMITTED IP TO THIS HOSP Condition: Fair Referrals: Pamela Temple MD [Primary Care Provider] - 1-2 days Time of Disposition: 12:21
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
[2023-02-28] MEDS: ENOXAPARIN 40 MG/0.4 ML SYRINGE SQ SCH (18:20)
--- NOTE | 2023-02-28 22:19 | CT ---
EXAMINATION TYPE: CT chest angio for PE CT DLP: 445.8 mGycm, Automated exposure control for dose reduction was used. DATE OF EXAM: 02/28/2023 9:52 PM COMPARISON: CT 04/05/2021 CLINICAL INDICATION:Male, 62 years old with history of recent covid, chest pain, cough elevated d dim er; elevated d-dimer, chest pain with recent COVID TECHNIQUE/CONTRAST: CTA scan of the thorax is performed with IV Contrast, patient injected with 100 cc mL of Isovue 370, pulmonary embolism protocol. MIP images are created and reviewed these are created on a separate wor kstation.. FINDINGS: Pulmonary Artery: There is no evidence for a filling defect within the pulmonary vasculature to sugge st acute pulmonary embolism. The pulmonary artery is of normal size. Lungs/Pleura: No evidence of focal consolidation, pleural effusion or pneumothorax. Airway: Large airways are patent. Heart: Heart is within normal limits for size. Vasculature: No evidence of aortic aneurysm. Mild ectasia of ascending thoracic aorta up to 41 mm. Mediastinum: No gross evidence of adenopathy. Musculoskeletal: No acute osseous abnormalities, grouped malignant appearing right rib fractures. Soft Tissues: Unremarkable. Lower neck: Mildly asymmetric enlarged right thyroid gland. No discrete nodules definitively visualiz ed.. Upper Abdomen: Diffuse low-attenuation to the liver parenchyma.. IMPRESSION: 1. No evidence of pulmonary embolism. 2. No acute thoracic process visualized. 3. Mild ectasia of ascending thoracic aorta measuring up to 41 mm. 4. Hepatic steatosis. 5. Mildly asymmetrically enlarged right thyroid gland which can be further evaluated with thyroid ul trasound if clinically warranted.
[2023-03-01 07:54] VITALS: RESP 16; TEMP 97.6
[2023-03-01] MEDS: ENOXAPARIN 40 MG/0.4 ML SYRINGE SQ SCH (08:37)
[2023-03-01] MEDS ORDERED: amLODIPine 10 MG TAB PO SCH (09:00)
[2023-03-01] MEDS ORDERED: hydroCHLOROthiazide 25 MG TAB PO SCH (09:00)
[2023-03-01] MEDS ORDERED: ASPIRIN 325 MG TAB PO SCH (09:00)
[2023-03-01] MEDS ORDERED: ASPIRIN 81 MG PO SCH (09:00)
[2023-03-01] MEDS ORDERED: VALSARTAN 160 MG TAB PO SCH (09:00)
--- NOTE | 2023-03-01 09:43 | CA ---
Transthoracic Echo Report Name: Abhi Pendleton Age: 62 Gender: M : 1960 Exam Date: 02/28/2023 13:30 Exam Location: [place] [facility] Ht (in): 70 Wt (lb): 214 Ordering Physician: Jose Antonio Edward Attending/Referring Phys: [id number], Wagner Hog Worker Gabby Vizcarra RDCS Procedure CPT: Indications: Chest Pain Cardiac Hx: Technical Quality: Good Contrast 1: Total Dose (mL): Contrast 2: Total Dose (mL): MEASUREMENTS (Male / Female) Normal Values 2D ECHO LV Diastolic Diameter PLAX 4.8 cm 4.2 - 5.9 / 3.9 - 5.3 cm LV Systolic Diameter PLAX 3.0 cm IVS Diastolic Thickness 1.5 cm 0.6 - 1.0 / 0.6 - 0.9 cm LVPW Diastolic Thickness 1.3 cm 0.6 - 1.0 / 0.6 - 0.9 cm LV Relative Wall Thickness 0.6 RV Internal Dim ED PLAX 3.9 cm LA Systolic Diameter LX 3.3 cm 3.0 - 4.0 / 2.7 - 3.8 cm LV Diastolic Volume MOD 4C 125.0 cm??? LV Systolic Volume MOD 4C 48.7 cm??? LV Ejection Fraction MOD 4C 61.0 % LV Cardiac Index MOD 4C 2410.7 cm???/min???m??? LV Diastolic Length 4C 8.7 cm LV Systolic Length 4C 7.4 cm LV Diastolic Volume MOD 2C 121.1 cm??? LV Systolic Volume MOD 2C 36.9 cm??? LV Ejection Fraction MOD 2C 69.5 % LV Cardiac Index MOD 2C 2660.8 cm???/min???m??? LV Diastolic Length 2C 9.6 cm LV Systolic Length 2C 7.8 cm LA Volume 44.6 cm??? 18 - 58 / 22 - 52 cm??? M-MODE Aortic Root Diameter MM 3.5 cm MV E Point Septal Separation 0.3 cm AV Cusp Separation MM 2.4 cm DOPPLER AV Peak Velocity 192.1 cm/s AV Peak Gradient 14.8 mmHg AV Mean Velocity 126.2 cm/s AV Mean Gradient 7.5 mmHg AV Velocity Time Integral 38.1 cm AI Peak Velocity 372.1 cm/s AI Peak Gradient 55.4 mmHg AI Pressure Half Time 701.6 ms MV Area PHT 2.4 cm??? Mitral E Point Velocity 78.8 cm/s Mitral A Point Velocity 94.4 cm/s Mitral E to A Ratio 0.8 MV Deceleration Time 316.3 ms MV E' Velocity 9.1 cm/s Mitral E to MV E' Ratio 8.7 FINDINGS Left Ventricle Left ventricular ejection fraction is estimated at 55-60 %. Left ventricular cavity size normal. Moderately increased septal wall thickness. Normal left ventricular wall motion. Right Ventricle Moderate right ventricular dilatation. Unable to estimate the right ventricular systolic pressure. Right Atrium Normal right atrial size. Left Atrium Normal left atrial size. Mitral Valve Structurally normal mitral valve. No mitral stenosis, regurgitation or prolapse. Aortic Valve Trileaflet aortic valve. Mild aortic regurgitation. Tricuspid Valve Structurally normal tricuspid valve. No tricuspid stenosis, regurgitation or prolapse. Pulmonic Valve Structurally normal pulmonic valve. No pulmonic regurgitation. Pericardium Normal pericardium. No pericardial effusion. Aorta Normal size aortic root and proximal ascending aorta. CONCLUSIONS Normal LV systolic function Mildly dilated RV with normal function Previewed by: Dr. Farshad Newsome MD (Electronically Signed) Final Date: 01 March 2023 09:42
--- NOTE | 2023-03-01 09:43 | P.CRDCN ---
History of Present Illness History of present illness: HISTORY OF PRESENT ILLNESS: This is a 62-year-old male with a past medical history significant for hypertension. 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 We have been asked to see the patient in consultation for chest pain. Patient examined at the bedside. Patient states over the past 2 weeks he has been having chest pain. 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 He states the pain has been going to his back and his jaw. He states that he took 1 nitro that one of his friends gave him. He states that initially did not help so he took another one and he states after that his pain started to subside. He states the pain lasted for approximately 30 minutes. He states that he saw his primary care physician 2 days ago and she completed an EKG which was unremarkable to his knowledge. He received a prescription for sublingual nitro. He was advised to come to the emergency room if he developed chest pain again. The patient states he was working again yesterday and developed chest pain so he came to the year for further evaluation. At the time of examination he denies chest pain or pressure. He denies shortness of breath. He is a nonsmoker. He reports his mom had a history of pacemaker implantation but denies any cardiac history on his dad's side. * EKG reveals sinus mechanism with no signs of acute ischemia * Chest xray negative for acute process * Laboratory data: WBC 7.8. Hemoglobin 15.3. Platelet count 273. D-dimer 1.47. Sodium 138. Potassium 3.7. BUN 21. Creatinine 0.97. Troponin negat alexandro 3 * Current home cardiac medications include Norvasc 10 mg daily and valsartan-hydrochlorothiazide 320-25mg daily * Most recent echocardiogram obtained in March 2021 revealed ejection fraction 55-60% with mild MR and mild TR REVIEW OF SYSTEMS: At the time of my exam: CONSTITUTIONAL: Denies fever or chills. HEENT: Denies blurred vision, vision changes, or eye pain. Denies hemoptysis CARDIOVASCULAR: Denies chest pain. Denies orthopnea. Denies PND. Denies palpit ations RESPIRATORY: Denies shortness of breath. GASTROINTESTINAL: Denies abdominal pain. Denies nausea or vomiting. HEMATOLOGIC: Denies bleeding disorders. GENITOURINARY: Denies any blood in urine. SKIN: Denies pruitis. Denies rash. PHYSICAL EXAM: VITAL SIGNS: Reviewed. GENERAL: Well-developed in no acute distress. HEENT: Head is normocephalic. Pupils are equal, round. Sclerae anicteric. Mucous membranes of the mouth are moist. Neck supple. No JVD or thyromegaly LUNGS: Respirations even and unlabored. Lungs essentially clear to auscultation bilaterally. HEART: Regular rate and rhythm. S1 and S2 heard. ABDOMEN: Soft. Nondistended. Nontender. EXTREMITIES: Normal range of motion. No clubbing or cyanosis. Peripheral pulses intact. No lower extremity edema NEUROLOGIC: Awake and alert. Oriented x 3. ASSESSMENT: Chest pain Hypertension PLAN: An acute coronary event has been ruled out Obtain 2-D echo to assess cardiac structure and function Continue to monitor blood pressure Continue home cardiac medications Patient to undergo stress testing today. If negative, he may be discharged home today from a cardiac standpoint Nurse practitioner note has been reviewed by physician. Signing provider agrees with the documented findings, assessment, and plan of care. Past Medical History Past Medical History: GERD/Reflux, Hearing Disorder / Deafness, Hyperlipidemia, Hypertension, Myocardial Infarction (SD), Osteoarthritis (OA) Additional Past Medical History / Comment(s): TINNITUS RIGHT EAR, SD 2011-STATES no stents BLOOD CLOT OR PLACQUE., LEAKY HEART VALVE., HTN EPISODE IN MARCH 2021 WITH SEVERE CHEST PAIN., FOLLOWS LOW SODIUM DIET., HX OF COVID X2. Last Myocardial Infarction Date:: 2011 History of Any Multi-Drug Resistant Organisms: None Reported, MRSA Date of last positivie culture/infection: 2009 MDRO Source:: RT INNER THIGH Past Surgical History: Appendectomy, Heart Catheterization, Orthopedic Surgery Additional Past Surgical History / Comment(s): RT 5TH FINGER TENDON REPAIR., LEFT ANKLE FX WITH HARDWARE. shoulder repalcement Past Anesthesia/Blood Transfusion Reactions: No Reported Reaction Past Psychological History: No Psychological Hx Reported Smoking Status: Former smoker Past Alcohol Use History: Daily Additional Past Alcohol Use History / Comment(s): USUALLY DRINKS 6 PACK OR 7, 8 OR 9 BEERS DAILY. sometimes none. QUIT SMOKING 24 YEARS AGO (1996), SMOKED 1 PPD, STARTED SMOKING AGE 17. Past Drug Use History: Marijuana Additional Drug Use History / Comment(s): USES DAILY - Past Family History Mother Family Medical History: Cancer Medications and Allergies Home Medications Medication Instructions Recorded Confirmed Type Nitroglycerin Sl Tabs [Nitrostat] 0.4 mg SUBLINGUAL Q5M PRN 02/28/23 02/28/23 History Valsartan/Hydrochlorothiazide 1 tab PO DAILY 02/28/23 02/28/23 History [Valsartan-Hctz 320-25 mg Tab] amLODIPine [Norvasc] 10 mg PO DAILY 02/28/23 02/28/23 History Allergies Allergy/AdvReac Type Severity Reaction Status Date / Time No Known Allergies Allergy Verified 02/28/23 14:16 Physical Exam Vitals: Vital Signs Temp Pulse Pulse Pulse Resp BP BP 03/01/23 07:20 97.6 F 51 L 16 03/01/23 02:00 97.9 F 65 15 132/66 02/28/23 20:00 98.5 F 76 18 143/88 02/28/23 16:06 69 18 136/99 02/28/23 15:00 67 18 133/88 02/28/23 14:00 66 112/85 02/28/23 13:00 73 02/28/23 12:00 64 02/28/23 11:48 67 18 135/95 02/28/23 11:12 85 02/28/23 10:24 98.1 F 95 22 149/87 BP Pulse Ox 03/01/23 07:20 135/88 96 03/01/23 02:00 98 02/28/23 20:00 97 02/28/23 16:06 97 02/28/23 15:00 02/28/23 14:00 02/28/23 13:00 02/28/23 12:00 02/28/23 11:48 97 02/28/23 11:12 02/28/23 10:24 97 Intake and Output 02/28/23 03/01/23 03/01/23 22:59 06:59 14:59 Other: # Voids 1 Weight 97.069 kg Results 02/28/23 11:08 02/28/23 11:08 Cardiac Enzymes 02/28/23 02/28/23 02/28/23 Range/Units 11:08 11:08 14:36 AST 37 (17-59) U/L Troponin I <0.012 <0.012 (0.000-0.034) ng/mL 02/28/23 Range/Units 17:42 AST (17-59) U/L Troponin I <0.012 (0.000-0.034) ng/mL Coagulation 02/28/23 Range/Units 11:08 PT 10.1 (9.0-12.0) sec APTT 24.3 (22.0-30.0) sec CBC 02/28/23 Range/Units 11:08 WBC 7.8 (3.8-10.6) k/uL RBC 5.08 (4.30-5.90) m/uL Hgb 15.3 (13.0-17.5) gm/dL Hct 45.1 (39.0-53.0) % Plt Count 273 (150-450) k/uL Comprehensive Metabolic Panel 02/28/23 Range/Units 11:08 Sodium 138 (137-145) mmol/L Potassium 3.7 (3.5-5.1) mmol/L Chloride 104 (98-107) mmol/L Carbon Dioxide 26 (22-30) mmol/L BUN 21 H (9-20) mg/dL Creatinine 0.97 (0.66-1.25) mg/dL Glucose 117 H (74-99) mg/dL Calcium 9.1 (8.4-10.2) mg/dL AST 37 (17-59) U/L ALT 41 (4-49) U/L Alkaline Phosphatase 89 (38-126) U/L Total Protein 6.9 (6.3-8.2) g/dL Albumin 4.2 (3.5-5.0) g/dL Current Medications Generic Name Dose Route Start Last Admin Trade Name Freq PRN Reason Stop Dose Admin Amlodipine Besylate 10 mg 03/01/23 09:00 Amlodipine 10 Mg Tab PO DAILY [facility] Aspirin 325 mg 03/01/23 09:00 Aspirin 325 Mg Tab PO DAILY [facility] Enoxaparin Sodium 40 mg 02/28/23 17:30 02/28/23 18:20 Enoxaparin 40 Mg/0.4 Ml Syringe SQ 40 mg DAILY [facility] Administration Hydrochlorothiazide 25 mg 03/01/23 09:00 Hydrochlorothiazide 25 Mg Tab PO DAILY [facility] Nitroglycerin 0.4 mg 02/28/23 12:39 Nitroglycerin Sl Tabs 0.4 Mg Tab SUBLINGUAL Q5M PRN Chest Pain Valsartan 320 mg 03/01/23 09:00 Valsartan 160 Mg Tab PO DAILY [facility] Intake and Output 02/28/23 03/01/23 03/01/23 22:59 06:59 14:59 Other: # Voids 1 Weight 97.069 kg 02/28/23 11:08 02/28/23 11:08
[2023-03-01] MEDS ORDERED: REGADENOSON 0.4 MG/5 ML SYRINGE IV PRN (10:50)
[2023-03-01] MEDS ORDERED: AMINOPHYLLINE 500 MG/20 ML VIAL IV PRN (10:50)
[2023-03-01] MEDS ORDERED: CAFFEINE CITRATE 60 MG/3 ML VIAL IV PRN (10:50)
[2023-03-01 11:46] LABS: Chol/HDL Ratio 4.04 Ratio; LDL Cholesterol,Calculated 109.1 mg/dL (0.0-131.0)
--- NOTE | 2023-03-01 13:12 | NM ---
EXAMINATION TYPE: NM stress lexiscan cardiolite DATE OF EXAM: 03/01/2023 COMPARISON: NONE CLINICAL INDICATION: Male, 62 years old with history of CP; chest TECHNIQUE: After the intravenous administration of 10.6 mCi Tc 99m Sestamibi - Cardiolite resting SP ECT images acquired 45 minutes post injection. The patient received 0.4mg Lexiscan, 25.3 mCi Tc 99m Sestamibi - Stress images obtained [address] injection FINDINGS: Review of stress and rest SPECT images demonstrates no distinct perfusion abnormality. Gated analysi s shows normal wall motion with an estimated left ventricular ejection fraction of 54 %. IMPRESSION: No scintigraphic evidence for reversible ischemia.
[2023-03-01 14:48] VITALS: BP 118/81; PULSE 79
--- NOTE | 2023-03-01 14:59 | P.GSCN ---
History of Present Illness Consult date: 03/01/23 Reason for Consult: Abdominal aortic aneurysm Requesting physician: Rashid Joyner History of present illness: This pleasant 62-year-old male who presented to the emergency department yesterday with complaints of chest pain that radiated to his back and his jaw. His medical history significant for hypertension, myocardial infarction, hyperlipidemia, and hearing disorder. He states that he's been having chest pain off-and-on for quite some time but over the last 2 weeks it's been more frequent. Within the last week patient was having chest pain he took one of his coworkers nitros and it improved his symptoms. He went to his PCP couple days ago and they started him on nitro however told him to go to the emergency department if he had any further chest pain. Patient states he was having chest pain yesterday and came to the emergency department for further evaluation. He was noted to have elevated d-dimer on admission and underwent a CT angiogram of the chest that reported no pulmonary embolism, with reported no acute findings. It did report mild ectasia of ascending thoracic aorta measuring 41 mm. V ascular surgery was consulted by patient's primary care physician for abdominal aortic aneurysm.Today he went down for a stress test, he was unable to get his heart rate to the desired number so the ended up doing a Lexiscan. Results are currently pending. He currently states that he was having some sharp stabbing pain earlier in his chest, he states that he feels like he has a little bit of a chest pressure right now. Denies any redness of breath, abdominal pain or back pain. He denies any previous knowledge of abdominal aortic aneurysm or family history. He is a nonsmoker. Review of Systems A 14 point review systems was completed all pertinent positives and negatives as stated in the HPI. Past Medical History Past Medical History: GERD/Reflux, Hearing Disorder / Deafness, Hyperlipidemia, Hypertension, Myocardial Infarction (ID), Osteoarthritis (OA) Additional Past Medical History / Comment(s): TINNITUS RIGHT EAR, ID 2011-STATES no stents BLOOD CLOT OR PLACQUE., LEAKY HEART VALVE., HTN EPISODE IN MARCH 2021 WITH SEVERE CHEST PAIN., FOLLOWS LOW SODIUM DIET., HX OF COVID X2. Last Myocardial Infarction Date:: 2011 History of Any Multi-Drug Resistant Organisms: None Reported, MRSA Year Discovered:: 2009 MDRO Source:: RT INNER THIGH Past Surgical History: Appendectomy, Heart Catheterization, Orthopedic Surgery Additional Past Surgical History / Comment(s): RT 5TH FINGER TENDON REPAIR., LEFT ANKLE FX WITH HARDWARE. shoulder repalcement Past Anesthesia/Blood Transfusion Reactions: No Reported Reaction Past Psychological History: No Psychological Hx Reported Smoking Status: Former smoker Past Alcohol Use History: Daily Additional Past Alcohol Use History / Comment(s): USUALLY DRINKS 6 PACK OR 7, 8 OR 9 BEERS DAILY. sometimes none. QUIT SMOKING 24 YEARS AGO (1996), SMOKED 1 PPD, STARTED SMOKING AGE 17. Past Drug Use History: Marijuana Additional Drug Use History / Comment(s): USES DAILY - Past Family History Mother Family Medical History: Cancer Medications and Allergies Home Medications Medication Instructions Recorded Confirmed Type Nitroglycerin Sl Tabs [Nitrostat] 0.4 mg SUBLINGUAL Q5M PRN 02/28/23 02/28/23 History Valsartan/Hydrochlorothiazide 1 tab PO DAILY 02/28/23 02/28/23 History [Valsartan-Hctz 320-25 mg Tab] amLODIPine [Norvasc] 10 mg PO DAILY 02/28/23 02/28/23 History Allergies Allergy/AdvReac Type Severity Reaction Status Date / Time No Known Allergies Allergy Verified 02/28/23 14:16 Surgical - Exam Vital Signs Temp Pulse Resp BP Pulse Ox 98.1 F 95 22 149/87 97 02/28/23 10:24 02/28/23 10:24 02/28/23 10:24 02/28/23 10:24 02/28/23 10:24 General appearance: The patient is alert, oriented, appears in no acute distress. HET: Head is normocephalic and atraumatic. Pupils are equal and reactive. Neck: Supple. Trachea midline. No audible carotid bruit. Heart: Regular. Lungs: Equal expansion, normal respiratory effort. Abdomen: Soft, nontender, nondistended. Extremities: Normal skin color and turgor. No cyanosis, rash, ulceration, clubbing, or edema. Radial and pedal pulses are 2/4 bilaterally. Neurological: No focal deficits. Results - Labs 02/28/23 11:08 02/28/23 11:08 Abnormal Lab Results - Last 24 Hours (Table) 02/28/23 03/01/23 Range/Units 17:42 06:16 D-Dimer 1.47 H (<0.60) mg/L FEU Triglycerides 233.00 H (0.00-149.00) mg/dL Cholesterol 207.00 H (0.00-200.00) mg/dL VLDL Cholesterol, Calc 46.60 H (5.00-40.00) mg/dL Diabetes panel 03/01/23 Range/Units 06:16 Triglycerides 233.00 H (0.00-149.00) mg/dL HDL Cholesterol 51.30 (40.00-60.00) mg/dL Assessment and Plan Assessment: 1. Chest pain 2. 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 Chronic hypertension 4. Hyperlipidemia Plan: 1. Continue with recommendations from cardiology 2. Maintain optimal blood pressure control 3. There is essentially no change in diameter of ascending aorta from 2020. Th ere is no indication for any vascular surgical intervention. Patient can follow-up as needed with vascular surgery. Thank you for this consultation, patient is cleared from vascular surgery for discharge. The impression and plan of care has been dictated as directed. Dr. Caban I performed a history and examination of this patient, discussed the same with the dictator. I agree with the dictator's note ,documented as a scribe. Any additional findings or plans will be noted.
[2023-03-01] MEDS ORDERED: ATORVASTATIN 40 MG TAB PO SCH (21:00)
--- NOTE | 2023-03-03 18:42 | CA ---
Exercise Stress Test Report Name: Abhi Pendleton Exam Date: 03/01/2023 10:24 Exam Location: [facility] Stress Ht (in): 70 Wt (lb): 214 BSA: 2.15 Ordering Phys: Tia García Referring Phys: LOGAN,, Technologist: ADELE,, Age: 62 Gender: M : 1960 Procedure CPT: Indications: Reflex order-Stress test ICD-10 Codes: Patient History: Chest pain Medications: Meds past 24 hrs: Pretest Chest Pain: STRESS TEST [place] Protocol Exercise Duration (min:sec): 09:[address] Depressions (mm): Angina Score: Gutierrez Score: Resting HR (bpm): 69 Peak HR (bpm): 118 Resting BP (mmHg): 127 / 84 Peak BP (mmHg): 120 / 69 MPHR: 158 Target HR: 134 % MPHR: 75 METS: 10.5 Total Dose: Peak Dose: Atropine: Double Product: 65574 BP Response: Stress Termination: Chest pain Stress Symptoms: No chest pain or symptoms Stress Summary: ECG ANALYSIS Resting ECG: Stress ECG: CONCLUSIONS Excellent exercise tolerance Normal EKG in response to exercise to the level of the heart rate achieved which is 75% of maximal predicted heart rate Overall nondiagnostic stress test Dr. Farshad Newsome MD (Electronically Signed) Final Date: 03 March 2023 18:41
== END 2023-03-01 16:36 ==
LOC: EC 10:20 → 6NMEDSUR 12:10
PROVIDERS: ADMIT Internal Medicine; ATTEND Internal Medicine
DX: R07.89 Other chest pain (principal); I77.810 Thoracic aortic ectasia; R79.89 Other specified abnormal findings of blood chemistry; I10 Essential (primary) hypertension; I45.10 Unspecified right bundle-branch block; I25.10 Atherosclerotic heart disease of native coronary artery without angina pectoris; K21.9 Gastro-esophageal reflux disease without esophagitis; K76.0 Fatty (change of) liver, not elsewhere classified; E78.5 Hyperlipidemia, unspecified; H91.90 Unspecified hearing loss, unspecified ear; M19.90 Unspecified osteoarthritis, unspecified site; H93.11 Tinnitus, right ear; I25.2 Old myocardial infarction; Z79.899 Other long term (current) drug therapy; Z86.16 Personal history of COVID-19; Z86.14 Personal history of Methicillin resistant Staphylococcus aureus infection; Z96.612 Presence of left artificial shoulder joint; Z87.81 Personal history of (healed) traumatic fracture; Z90.49 Acquired absence of other specified parts of digestive tract; Z98.890 Other specified postprocedural states; Z87.891 Personal history of nicotine dependence; Z80.9 Family history of malignant neoplasm, unspecified; Z82.49 Family history of ischemic heart disease and other diseases of the circulatory system
CPT/HCPCS: 96372 ×2; 99285; 36415; 93005; 93017; 93306; 85379; 83880; 80061; 80053; 83735; 84484; 85025; 85610; 85730; 71046; 71275; 78452; G0378 ×2; A9500; J1650 ×2; J2785; Q9967

== ENCOUNTER → 2023-04-03 | Outpatient (CLI) | payer OTHER ==
--- NOTE | 2023-04-04 07:58 | US ---
EXAMINATION TYPE: US thyroid st tissue head/neck DATE OF EXAM: 04/03/2023 COMPARISON: CT: 02/28/23 CLINICAL INDICATION: Male, 62 years old with history of R93.89 ABNORMAL FINDINGS ON DX IMAGING OF OTH BODY; enlarged rt lobe seen on CT GLAND SIZE: Right Lobe: 5.1 x 2.5 x 2.9 cm Overall Parenchyma: homogenous Left Lobe: 5.3 x 1.8 x 2.0 cm Overall Parenchyma: homogeneous Isthmus Thickness: 0.5 cm NODULES RIGHT: # of nodules measured on right: 2 1. 2.7 X 2.5 x 2.5 cm, lower mid, TIRADS Score: 4 TIRADS Category 4: Moderately Suspicious Composition: Solid or almost completely solid (2 points). Echogenicity: Hypoechoic (2 points). Shape: Wider than tall (0 points). Margin: Smooth (0 points). Echogenic foci: None or large comet-tail artifacts (0 points) Recommendation: If >1.5cm: FNA; If >1cm: Follow up at 1,2, 3,5 years 2. 0.8 X 0.6 x 0.5 cm, mid mid TIRADS Score: 5 TIRADS Category 4: Moderately Suspicious Composition: Solid or almost completely solid (2 points). Echogenicity: Hypoechoic (2 points). Shape: Wider than tall (0 points). Margin: Smooth (0 points). Echogenic foci: Macrocalcifications (1 point) Recommendation: If >1.5cm: FNA; If >1cm: Follow up at 1,2, 3,5 years LEFT: # of nodules measured on left: 2 1. 1.4 X 1.1 x 1.0 cm, lower mid, TIRADS Score: 4 TIRADS Category 4: Moderately Suspicious Composition: Solid or almost completely solid (2 points). Echogenicity: Hypoechoic (2 points). Shape: Wider than tall (0 points). Margin: Smooth (0 points). Echogenic foci: None or large comet-tail artifacts (0 points) Recommendation: If >1.5cm: FNA; If >1cm: Follow up at 1,2, 3,5 years 2. 2.0 X 1.1 x 1.7 cm, mid mid, . TIRADS Score: 3 TIRADS Category 3: Mildly Suspicious Composition: Solid or almost completely solid (2 points). Echogenicity: Hyperechoic or isoechoic (1 point). Shape: Wider than tall (0 points). Margin: Smooth (0 points). Echogenic foci: None or large comet-tail artifacts (0 points) Recommendation: If >2.5cm: FNA; If >1.5cm: Follow up at 1,3,5 years ISTHMUS: # of nodules measured in the isthmus: 0 Bilateral neck scanned, no evidence of lymphadenopathy. IMPRESSION: Bilateral thyroid nodules with recommendations as described above. 1 thyroid nodule on the right erika uring up to 2.7 cm each criteria for biopsy is now ready performed. A 1.4 cm left thyroid nodule is b orderline for size to consider FNA.
== END | disposition home or self-care (01) ==
LOC: RADUSWWP 16:51
PROVIDERS: ATTEND Family Medicine
DX: E04.2 Nontoxic multinodular goiter (principal); E07.9 Disorder of thyroid, unspecified; R93.89 Abnormal findings on diagnostic imaging of other specified body structures
CPT/HCPCS: 76536

== ENCOUNTER 2023-05-22 12:25 | Day surgery (SDC) | payer OTHER ==
--- NOTE | 2023-05-22 13:21 | US ---
ULTRASOUND GUIDED FNA THYROID BIOPSY: CLINICAL HISTORY: Right thyroid nodule FINDINGS: The procedure was explained to the patient. The risks, complications, benefits and alternatives were discussed and any questions were answered. Informed consent was obtained. Patient was placed supin e on the ultrasound table and prepped and draped in the usual sterile fashion. Utilizing a 25 gauge needle, five passes were made into the requested right thyroid nodule. Patient was stable throughout the procedure. Pathology is pending. All elements of maximal barrier technique were utilized. IMPRESSION: 1. Successful ultrasound guided FNA thyroid biopsy.
[2023-05-22 13:22] VITALS: RESP 16; TEMP 97.8
[2023-05-22 13:24] VITALS: BP 144/85; PULSE 76
== END 2023-05-22 13:28 | disposition home or self-care (01) ==
LOC: RADPROMAIN 12:25
PROVIDERS: ATTEND Internal Medicine Endocrinology, Diabetes & Metabolism
DX: E04.1 Nontoxic single thyroid nodule (principal)
CPT/HCPCS: 10005; 88173; 88305

== ENCOUNTER → 2023-09-08 | Outpatient (CLI) | payer OTHER ==
[2023-09-08 16:46] LABS: HCT 44.3 % (39.6-50.0); HGB 14.6 g/dL (13.0-17.0); MCH 29.3 pg (27.0-32.0); MCV 88.8 FL (80.0-97.0); Mean Platelet Volume 10.7 FL (9.5-12.2); NRBC Per 100 WBC 0 X 10*3/uL (0.00-0.01); Platelet Count 289 X 10*3/uL (140-440); RBC 4.99 X 10*6/uL (4.40-5.60); RDW 12.6 % (11.5-14.5); WBC 8.18 X 10*3/uL (4.50-10.00)
== END | disposition home or self-care (01) ==
LOC: LABWHC1 11:16
PROVIDERS: ATTEND Internal Medicine Interventional Cardiology
DX: D69.6 Thrombocytopenia, unspecified (principal)
CPT/HCPCS: 36415; 85027

== ENCOUNTER → 2023-09-12 | Outpatient (CLI) | payer OTHER ==
--- NOTE | 2023-09-12 18:25 | US ---
EXAMINATION TYPE: US venous doppler duplex LE RT DATE OF EXAM: 09/12/2023 2:07 PM COMPARISON: NONE CLINICAL INDICATION: Male, 63 years old with history of RLE;I80.291 PHLEBITIS AND THOMBOPHLB; Right l eg bruising SIDE PERFORMED: Right TECHNIQUE: The lower extremity deep venous system is examined utilizing real time linear array sonog wesley with graded compression, doppler sonography and color-flow sonography. VESSELS IMAGED: Common Femoral Vein Deep Femoral Vein Greater Saphenous Vein * Femoral Vein Popliteal Vein Small Saphenous Vein * Proximal Calf Veins (* superficial vessels) Right Leg: Appears negative for DVT IMPRESSION: No evidence for DVT within the right lower extremity imaged from the groin to the upper calf.
== END | disposition home or self-care (01) ==
LOC: RADUSWWP 13:43
PROVIDERS: ATTEND Internal Medicine Interventional Cardiology
DX: I80.291 Phlebitis and thrombophlebitis of other deep vessels of right lower extremity (principal)

== ENCOUNTER → 2024-10-18 | Outpatient (CLI) | payer OTHER ==
--- NOTE | 2024-10-18 13:32 | US ---
EXAMINATION TYPE: US thyroid st tissue head/neck DATE OF EXAM: 10/18/2024 COMPARISON: US 2022 CLINICAL INDICATION: Male, 64 years old with history of E07.9 DISORDER OF THYROID; Hx of FNA TECHNIQUE: Grayscale and color Doppler imaging of the thyroid gland. FINDINGS: GLAND SIZE: Right Lobe: 6.1 x 1.9 x 2.9 cm Overall Parenchyma: heterogeneous Left Lobe: 5.3 x 1.8 x 2.2 cm Overall Parenchyma: heterogeneous Isthmus Thickness: 0.55 cm NODULES RIGHT: # of nodules measured on right: 3 1. 2.8 X 2.4 x 2.6 cm, lower mid, solid or almost completely solid, hypoechoic nodule, which is haley ler than wide, with smooth margins, without echogenic foci. TR 4. This was previously biopsied. Prior size: 2.7 x 2.5 x 2.5 cm 2. 1.6 X 1.4 x 1.7 cm, mid mid, solid or almost completely solid, hypoechoic nodule, which is talle r than wide, with smooth margins, with echogenic foci. Prior size: Cannot correlate 3. 0.8 X 0.6 x 0.6 cm, mid medial, solid or almost completely solid, hyperechoic nodule, which is a s wide as it is tall, with smooth margins, with echogenic foci. Prior size: 0.8 x 0.6 x 0.6 cm LEFT: # of nodules measured on left: 2 1. 2.1 X 1.3 x 1.4 cm, lower lateral, solid or almost completely solid, hypoechoic nodule, which is taller than wide, with smooth margins, without echogenic foci. TR 4 Prior size: 1.4 x 1.0 x 1.1 cm. 2. 2.3 X 1.1 x 1.4 cm, mid mid, solid or almost completely solid, isoechoic nodule, which is talle r than wide, with smooth margins, without echogenic foci. Prior size: 2.0 x 1.1 x 1.7 cm ISTHMUS: # of nodules measured in the isthmus: 0 Bilateral neck scanned, no evidence of lymphadenopathy. IMPRESSION: 1. Moderately suspicious nodules bilateral thyroid lobes. Biopsy of the left lobe thyroid nodule is recommended. 2017 ACR TI-RADS LEVEL: TR-RADS 4 - Moderately Suspicious: Follow if > 1 cm, FNA if > 1.5 cm *Highest TI-RADS level nodule reported [email or web address], , 10/18/2024 1:30 PM
== END | disposition home or self-care (01) ==
LOC: RADUSWWP 12:31
PROVIDERS: ATTEND Internal Medicine
DX: E07.9 Disorder of thyroid, unspecified (principal)
CPT/HCPCS: 76536

== ENCOUNTER 2025-01-16 13:11 | Emergency (ER) | payer OTHER ==
[2025-01-16 13:27] VITALS: RESP 18
--- NOTE | 2025-01-16 13:54 | XR ---
EXAMINATION TYPE: XR forearm RT DATE OF EXAM: 01/16/2025 1:41 PM COMPARISON: None. CLINICAL INDICATION: Male, 64 years old with history of framing nail in arm, pain TECHNIQUE: 2 view(s) obtained. FINDINGS: There is a radiopaque foreign body, nail, in the soft tissues of the mid right forearm. No osseous pe netration is evident. No acute fractures identified. No additional radiopaque foreign bodies. IMPRESSION: 1. Foreign body soft tissues right forearm [facility], , 01/16/2025 1:52 PM
--- NOTE | 2025-01-16 13:56 | ED ---
Upper Extremity HPI <Aaron Ricketts Nory - Last Filed: 01/16/25 14:30> - General Source: patient Mode of arrival: ambulatory Limitations: no limitations <Orquidea Pak - Last Filed: 01/16/25 19:41> - General Chief Complaint: Extremity Injury, Upper Stated Complaint: Right Arm Injury Time Seen by Provider: 01/16/25 13:40 - History of Present Illness Initial Comments: 64-year-old male who presented to the ER after inadvertently shooting himself in the right arm with a nail gun. Denies any other acute complaints. Patient is unsure if he is up-to-date on tetanus. Denies use of blood thinners. Denies fevers, chills, urinary or bowel complaints. (Orquidea Pak) - Related Data Home Medications Medication Instructions Recorded Confirmed Nitroglycerin Sl Tabs [Nitrostat] 0.4 mg SUBLINGUAL Q5M PRN 02/28/23 05/16/23 Valsartan/Hydrochlorothiazide 1 tab PO DAILY 02/28/23 05/16/23 [Valsartan-Hctz 320-25 mg Tab] amLODIPine [Norvasc] 10 mg PO DAILY 02/28/23 05/16/23 Previous Rx's Medication Instructions Recorded Aspirin 81 mg PO DAILY tab 03/01/23 Atorvastatin [Lipitor] 40 mg PO HS tab 03/01/23 Clindamycin [Cleocin] 300 mg PO Q6H 7 Days #28 cap 01/16/25 Allergies Allergy/AdvReac Type Severity Reaction Status Date / Time No Known Allergies Allergy Verified 01/16/25 13:27 Review of Systems ROS Other: All systems not noted in ROS Statement are negative. <SymonesueAaron Nory - Last Filed: 01/16/25 14:30> ROS Other: All systems not noted in ROS Statement are negative. Constitutional: Denies: fever, chills Skin: Reports: other (Male visible in the right forearm) <Orquidea Pak - Last Filed: 01/16/25 19:41> ROS Statement: Those systems with pertinent positive or pertinent negative responses have been documented in the HPI. Past Medical History Past Medical History: GERD/Reflux, Hearing Disorder / Deafness, Hyperlipidemia, Hypertension, Myocardial Infarction ([place]), Osteoarthritis (OA) Additional Past Medical History / Comment(s): TINNITUS RIGHT EAR, [place] 2011-STATES no stents BLOOD CLOT OR PLACQUE., LEAKY HEART VALVE., HTN EPISODE IN MARCH 2021 WITH SEVERE CHEST PAIN., FOLLOWS LOW SODIUM DIET., HX OF COVID X2. Last Myocardial Infarction Date:: 2011 History of Any Multi-Drug Resistant Organisms: None Reported, MRSA Date of last positivie culture/infection: 2009 MDRO Source:: RT INNER THIGH Past Surgical History: Appendectomy, Heart Catheterization, Orthopedic Surgery Additional Past Surgical History / Comment(s): RT 5TH FINGER TENDON REPAIR., LEFT ANKLE FX WITH HARDWARE. shoulder repalcement Past Anesthesia/Blood Transfusion Reactions: No Reported Reaction Past Psychological History: No Psychological Hx Reported Smoking Status: Former smoker Past Alcohol Use History: Daily Past Drug Use History: Marijuana - Past Family History Mother Family Medical History: Cancer <MellisaOrquidea - Last Filed: 01/16/25 19:41> General Exam Limitations: no limitations General appearance: alert, in no apparent distress Respiratory exam: Present: normal lung sounds bilaterally. Absent: respiratory distress Cardiovascular Exam: Present: regular rate, normal rhythm GI/Abdominal exam: Present: soft. Absent: distended, tenderness Right General: Present: nail injury (#) (1), avulsion Shoulder Exam: Present: tenderness. Absent: swelling, ecchymosis, deformity, crepitus, erythema Upper Arm exam: Present: full ROM Elbow exam: Present: full ROM, tenderness Forearm Wrist exam: Present: full ROM, tenderness Hand Wrist exam: Present: full ROM. Absent: tenderness, swelling Neuro motor exam: Present: wrist extension intact, thumb opposition intact, thumb IP flexion intact, fingers 2-5 abduction intact Vascular: Present: normal capillary refill. Absent: vascular compromise, Pallo Neurological exam: Present: alert, oriented X3 Psychiatric exam: Present: normal affect, normal mood <MellisaOrquidea - Last Filed: 01/16/25 19:41> Course Vital Signs 01/16/25 01/16/25 13:24 14:48 Temperature 98.2 F 98.4 F Pulse Rate 99 87 Respiratory 18 18 Rate Blood Pressure 150/100 145/93 O2 Sat by Pulse 95 Oximetry Procedures - Forgein Body Removal Soft Tissue Consent Obtained: verbal consent Site: upper extremity Anesthetic Used: lidocaine 1% Amount (mLs): 3 Foreign Body Suspected: Metal Foreign Body Removed: yes Foreign Body Removal Technique: Forceps Patient Tolerated Procedure: well, no complications <MellisaMarielenaOrquidea - Last Filed: 01/16/25 19:41> - Forgein Body Removal Soft Tissue Additional Comments: Nail was removed in its entirety. Wound was flushed was irrigated with sterile saline. (Orquidea Pak) Medical Decision Making <Aaron Ricketts - Last Filed: 01/16/25 14:30> <Orquidea Pak - Last Filed: 01/16/25 19:41> - Medical Decision Making I personally saw the patient and performed the critical portion of the service. I discussed the patient care with the resident. I directed management, care planning and final disposition of the patient. This includes, but not limited to, review of all lab work, radiological studies, EKG's, consultations, vital signs, and nursing notes. EKG interpreted by me (3pts min.) @As above X-Rays interpreted by me (1 pt min.) @X-ray of the right forearm shows soft tissue foreign body, no acute bony abnormality CT interpreted by me ( 1pt min.) @None U/S interpreted by me (1 pt min.) @None Critical care time of 0 minutes excluding separately billable procedures was spent in conjunction with critical care activities provided by the Resident and Attending simultaneously. I was present during foreign body removal for all critical portions of the procedure and as immediately available to furnish service during the entire procedure. (Aaron Ricketts) Was pt. sent in by a medical professional or institution (, PA, STUDENT DEVELOPMENT COORDINATOR, urgent care, hospital, or [facility]...) When possible be specific @ -No Did you speak to anyone other than the patient for history (EMS, parent, family, police, friend...)? What history was obtained from this source @ -No Did you review nursing and triage notes (agree or disagree)? Why? @ -I reviewed and agree with nursing and triage notes Were old charts reviewed (outside hosp., previous admission, EMS record, old EKG, old radiological studies, urgent care reports/EKG's, [facility] records)? Report findings @ -No old charts were reviewed Differential Diagnosis? @ -Foreign body, cellulitis, vascular or neuro vascular compromise, this is not an all-inclusive list. EKG interpreted by me (3pts min.). @ -As above X-rays interpreted by me (1pt min.). @ -X-ray showed nail remains in soft tissue not bony structure. No notable fractures. CT interpreted by me (1pt min.). @ -None done U/S interpreted by me (1pt. min.). @ -None done What testing was considered but not performed or refused? (CT, X-rays, U/S, labs)? Why? @ -None What meds were considered but not given or refused? Why? @ -None Did you discuss the management of the patient with other professionals (professionals i.e. DrAlli, PA, STUDENT DEVELOPMENT COORDINATOR, lab, RT, psych nurse, psychiatric social worker, agricultural technician, teacher, surface to air weapons officer, court manager)? Give summary @ -No Was smoking cessation discussed for >3mins.? @ -No Was critical care preformed (if so, how long)? @ -No Were there social determinants of health that impacted care today? How? (Homelessness, low income, unemployed, alcoholism, drug addiction, transportation, low edu. Level, literacy, decrease access to med. care, half-way, rehab)? @ -No Was there de-escalation of care discussed even if they declined (Discuss DNR or withdrawal of care, Hospice)? DNR status @ -No What co-morbidities impacted this encounter? (DM, HTN, Smoking, COPD, CAD, Cancer, CVA, ARF, Chemo, Hep., AIDS, mental health diagnosis, sleep apnea, morbid obesity)? @ -None Was patient admitted / discharged? Hospital course, mention meds given and route, prescriptions, significant lab abnormalities, going to OR and other pertinent info. @ -X-ray did not suggest that nail had come into contact with the bone. Patient received dose of clindamycin and tetanus vaccine in ER. Foreign body (nail) was removed in ER without complication. Patient was discharged home with self- care. Strict return precautions discussed including if wound became purulent, increased swelling or increased pain. Patient to follow-up with PCP in 1 to 2 days. Patient to follow-up with orthopedic hand specialist. Undiagnosed new problem with uncertain prognosis? @ -No Drug Therapy requiring intensive monitoring for toxicity (Heparin, Nitro, Insulin, Cardizem)? @ -No Were any procedures done? @ -No Diagnosis/symptom? @ -Nail gun injury, foreign body removal Acute, or Chronic, or Acute on Chronic? @ -Acute Uncomplicated (without systemic symptoms) or Complicated (systemic symptoms)? @ -Default Side effects of treatment? @ -No Exacerbation, Progression, or Severe Exacerbation? @ -No Poses a threat to life or bodily function? How? (Chest pain, [place], [place], pneumonia, PE, COPD, DKA, ARF, appy, cholecystitis, CVA, Diverticulitis, Homicidal, Suicidal, threat to staff... and all critical care pts) @ -No (Orquidea Pak) Disposition <Aaron Ricketts - Last Filed: 01/16/25 14:30> Is patient prescribed a controlled substance at d/c from ED?: No Time of Disposition: 14:00 <PakOrquidea - Last Filed: 01/16/25 19:41> Clinical Impression: Foreign body in right upper extremity, Injury by nail gun Disposition: HOME SELF-CARE Additional Instructions: Every disease is a spectrum and a small chance still exists that a serious condition could develop, for this reason, please monitor yourself closely for new, changing or worsening symptoms, symptoms that persist beyond 48 hours, any further episodes of vomiting blood, difficulty in breathing, severe abdominal pain, symptoms that did not improve in the next 48 hours, black or bloody stools, fever, inability to tolerate/keep down fluids or your medications, inability to follow up with outpatient providers as instructed and should you experience these symptoms or should you have any further concerns for your wellbeing please return to the ED or call 911 immediately. PLEASE take prescriptions as listed in discharge instructions. PLEASE call your primary care physician as soon as possible to arrange / discuss plan for followup appointment. Appointment in the next 1-3 days is strongly encouraged if possible. PLEASE let us know here before you leave if there is anything further we can do to be of any assistance. Take care and feel Better! Prescriptions: Clindamycin [Cleocin] 300 mg PO Q6H 7 Days #28 cap Referrals: None,Stated [REFERRING] - 1-2 days Nickie Shaikh [Doctor of Osteopathic Medicine] - 1-2 days
[2025-01-16] MEDS: LIDOCAINE 1% INJ 10MG/ML (20 ML MDV) SQ ONE (13:57)
[2025-01-16] MEDS: CLINDAMYCIN 150 MG CAP PO STA (13:58)
[2025-01-16] MEDS: DIPH,PERTUS(ACELL)TETVAC-LF 0.5 ML VIAL IM ONE (14:38)
[2025-01-16 14:49] VITALS: BP 145/93; PULSE 87; TEMP 98.4
== END 2025-01-16 14:49 | disposition home or self-care (01) ==
LOC: EC 13:11
DX: S40.851A Superficial foreign body of right upper arm, initial encounter (principal); Z87.891 Personal history of nicotine dependence; Z23 Encounter for immunization; W29.4XXA Contact with nail gun, initial encounter
CPT/HCPCS: 99283; 90471; 10120; 11730; 73090; 90715; J2003

== ENCOUNTER 2025-03-12 18:30 | Emergency (ER) | payer OTHER ==
--- NOTE | 2025-03-12 18:42 | ED ---
General Adult HPI - General Source: patient, RN notes reviewed Mode of arrival: ambulatory Limitations: no limitations <Cris Dejesus - Last Filed: 03/12/25 18:41> - General Source: patient, RN notes reviewed Mode of arrival: ambulatory Limitations: no limitations <Jose Antonio Edward - Last Filed: 03/12/25 22:12> - General Chief complaint: Chest Pain Stated complaint: chest pain Time Seen by Provider: 03/12/25 18:41 - History of Present Illness Initial comments: Quick note: 64-year-old male presented to the ER for evaluation of abnormal CT scan. Patient states he follows up with Dr. Waldrop for routine 6-month CT scans to monitor for cancer. He states he does not currently have cancer but did have fatty tumors removed which were found to be cancerous. CT scan performed today positive for pulmonary embolism, per patient. Patient instructed to come to the emergency department for further evaluation. He denies blood thinner use. He does admit to occasional shortness of breath and chest discomfort none currently. He admits to a history of 2 myocardial infarctions and [facility] with [facility]. Non-smoker and no recent travel. (Cris Dejesus) 64-year-old male presents emergency department chief complaint of abnormal CT. Patient states that he was doing his normal routine CT of his chest as he states that he had some fatty tumors removed and 1 was found to be cancerous. Patient states that as of now he has no current cancer but states he is doing his 6- month monitoring scan and was found to have a pulmonary embolism. Patient was advised to come Emergency Department for evaluation. He denies any current complaints of chest pain shortness of breath no leg pain or leg swelling out of the usual. Does mention of 2 prior MIs. Denies any recent traveling no abdominal pain or complaints. He states that the CT was at [facility]. (Jose Antonio Edward) - Related Data Home Medications Medication Instructions Recorded Confirmed Nitroglycerin Sl Tabs [Nitrostat] 0.4 mg SUBLINGUAL Q5M PRN 02/28/23 05/16/23 Valsartan/Hydrochlorothiazide 1 tab PO DAILY 02/28/23 05/16/23 [Valsartan-Hctz 320-25 mg Tab] amLODIPine [Norvasc] 10 mg PO DAILY 02/28/23 05/16/23 Previous Rx's Medication Instructions Recorded Aspirin 81 mg PO DAILY tab 03/01/23 Atorvastatin [Lipitor] 40 mg PO HS tab 03/01/23 Clindamycin [Cleocin] 300 mg PO Q6H 7 Days #28 cap 01/16/25 Apixaban [Eliquis Starter Pack 0 mg PO DIRECTED 30 Days #1 03/12/25 (for VTE)] packet Allergies Allergy/AdvReac Type Severity Reaction Status Date / Time No Known Allergies Allergy Verified 01/16/25 13:27 Review of Systems ROS Other: All systems not noted in ROS Statement are negative. <Cris Dejesus - Last Filed: 03/12/25 18:41> ROS Other: All systems not noted in ROS Statement are negative. <Jose Antonio Edward - Last Filed: 03/12/25 22:12> ROS Statement: Those systems with pertinent positive or pertinent negative responses have been documented in the HPI. Past Medical History Past Medical History: GERD/Reflux, Hearing Disorder / Deafness, Hyperlipidemia, Hypertension, Myocardial Infarction ([place]), Osteoarthritis (OA) Additional Past Medical History / Comment(s): TINNITUS RIGHT EAR, [place] 2011-STATES no stents BLOOD CLOT OR PLACQUE., LEAKY HEART VALVE., HTN EPISODE IN MARCH 2021 WITH SEVERE CHEST PAIN., FOLLOWS LOW SODIUM DIET., HX OF COVID X2. Last Myocardial Infarction Date:: 2011 History of Any Multi-Drug Resistant Organisms: None Reported, MRSA Date of last positivie culture/infection: 2009 MDRO Source:: RT INNER THIGH Past Surgical History: Appendectomy, Heart Catheterization, Orthopedic Surgery Additional Past Surgical History / Comment(s): RT 5TH FINGER TENDON REPAIR., LEFT ANKLE FX WITH HARDWARE. shoulder repalcement Past Anesthesia/Blood Transfusion Reactions: No Reported Reaction Past Psychological History: No Psychological Hx Reported Smoking Status: Former smoker Past Alcohol Use History: Daily Past Drug Use History: Marijuana - Past Family History Mother Family Medical History: Cancer <Cris Dejesus - Last Filed: 03/12/25 18:41> General Exam Limitations: no limitations <Cris Dejesus - Last Filed: 03/12/25 18:41> Limitations: no limitations General appearance: alert, in no apparent distress Head exam: Present: atraumatic, normocephalic, normal inspection ENT exam: Present: normal exam, mucous membranes moist Neck exam: Present: normal inspection, full ROM. Absent: tenderness, meningismus, lymphadenopathy Respiratory exam: Present: normal lung sounds bilaterally. Absent: respiratory distress, wheezes, rales, rhonchi, stridor Cardiovascular Exam: Present: regular rate, normal rhythm, normal heart sounds. Absent: systolic murmur, diastolic murmur, rubs, gallop, clicks GI/Abdominal exam: Present: soft, normal bowel sounds. Absent: distended, tenderness, guarding, rebound, rigid Extremities exam: Present: normal inspection, full ROM, normal capillary refill. Absent: tenderness, pedal edema, joint swelling, calf tenderness Neurological exam: Present: alert, oriented X3, reflexes normal. Absent: motor sensory deficit <Jose Antonio Edward - Last Filed: 03/12/25 22:12> - General Exam Comments Initial Comments: Visual Physical Exam Vital signs reviewed General: Well-appearing, nontoxic, no acute distress. Head: Normocephalic, atraumatic Eyes: PERRLA, EOMI ENT: Airway patent Chest: Nonlabored breathing Skin: No visual rash, normal skin tone Neuro: Alert and oriented 3 Musculoskeletal: No gross abnormalities (Cris Dejesus) Course Vital Signs 03/12/25 03/12/25 03/12/25 18:31 19:26 21:00 Temperature 98.8 F 97.9 F Pulse Rate 79 75 76 Respiratory 17 18 18 Rate Blood Pressure 152/93 136/94 124/98 O2 Sat by Pulse 98 97 97 Oximetry EKG Findings - EKG Comments: EKG Findings:: EKG performed at 18: 56 sinus rhythm rate of 73 IL 152 QRS 110 QT/QTc 393/420 - EKG Results: EKG: interpreted by ERMD <Jose Antonio Edward - Last Filed: 03/12/25 22:12> Medical Decision Making <Cris Dejesus - Last Filed: 03/12/25 18:41> - Lab Data Result diagrams: 03/12/25 19:04 03/12/25 19:04 <Jose Antonio Edward - Last Filed: 03/12/25 22:12> - Medical Decision Making I performed the quick note portion of this chart. Electronically signed by Cris Dejesus PA-C (Cris Dejesus) Was pt. sent in by a medical professional or institution (PATRICIA Canela, PICKING MACHINE OPERATOR, urgent care, hospital, or [facility]...) When possible be specific @ -[place] Did you speak to anyone other than the patient for history (EMS, parent, family, police, friend...)? What history was obtained from this source @ -none Did you review nursing and triage notes (agree or disagree)? Why? @ -I reviewed and agree with nursing and triage notes Were old charts reviewed (outside hosp., previous admission, EMS record, old EKG, old radiological studies, urgent care reports/EKG's, [facility] records)? Report findings @ -Reviewed CT of the chest from [facility] showing no evidence of nonocclusive right pulmonary artery PE Differential Diagnosis (chest pain, altered mental status, abdominal pain women, abdominal pain men, vaginal bleeding, weakness, fever, dyspnea, syncope, headache, dizziness, GI bleed, back pain, seizure, CVA, palpatations, mental health, musculoskeletal)? @ -Differential Dyspnea: Coronary syndrome, arrhythmia, tamponade, asthma, COPD, pulmonary embolism, pneumonia, pneumothorax, pulmonary effusion, anaphylaxis, diabetic ketoacidosis, flailed chest, pulmonary contusion, diaphragmatic rupture, anemia, neuromus cular, this is not meant to be an all-inclusive list. EKG interpreted by me (3pts min.). @ -As above X-rays interpreted by me (1pt min.). @ -None done CT interpreted by me (1pt min.). @ -None done U/S interpreted by me (1pt. min.). @ -Ultrasound venous Doppler bilateral lower extremity showing no evidence of DVT What testing was considered but not performed or refused? (CT, X-rays, U/S, labs)? Why? @ -None What meds were considered but not given or refused? Why? @ -None Did you discuss the management of the patient with other professionals (professionals i.e. PATRICIA Canela, PICKING MACHINE OPERATOR, lab, RT, psych nurse, social sciences research scientist, it sales representative, teacher, employee service officer, disability case manager)? Give summary @ -No Was smoking cessation discussed for >3mins.? @ -No Was critical care preformed (if so, how long)? @ -35 minutes Were there social determinants of health that impacted care today? How? (Homelessness, low income, unemployed, alcoholism, drug addiction, transportation, low edu. Level, literacy, decrease access to med. care, custodial, rehab)? @ -No Was there de-escalation of care discussed even if they declined (Discuss DNR or withdrawal of care, Hospice)? DNR status @ -No What co-morbidities impacted this encounter? (DM, HTN, Smoking, COPD, CAD, Cancer, CVA, ARF, Chemo, Hep., AIDS, mental health diagnosis, sleep apnea, morbid obesity)? @ -[Lung cancer Was patient admitted / discharged? Hospital course, mention meds given and route, prescriptions, significant lab abnormalities, going to OR and other pertinent info. @ -Discharge patient has nonocclusive pulmonary embolism. Patient was given Eliquis there is no evidence of right heart strain, patient is asymptomatic. Patient will follow-up with PCP for continuation week checks and return parameters discussed and we discussed risk of blood thinners. Undiagnosed new problem with uncertain prognosis? @ -No Drug Therapy requiring intensive monitoring for toxicity (Heparin, Nitro, Insulin, Cardizem)? @ -No Were any procedures done? @ -No Diagnosis/symptom? @ -Pulmonary embolism Acute, or Chronic, or Acute on Chronic? @ -Acute Uncomplicated (without systemic symptoms) or Complicated (systemic symptoms)? @ -Complicated Side effects of treatment? @ -No Exacerbation, Progression, or Severe Exacerbation? @ -No Poses a threat to life or bodily function? How? (Chest pain, [place], [place], pneumonia, PE, COPD, DKA, ARF, appy, cholecystitis, CVA, Diverticulitis, Homicidal, Suicidal, threat to staff... and all critical care pts) @ -yes pulm embolism causing resp arrest (Jose Antonio Edward) - Lab Data Lab Results 03/12/25 03/12/25 03/12/25 Range/Units 19:04 19:04 19:04 WBC 8.85 (4.50-10.00) 10*3/uL RBC 4.74 (4.40-5.60) 10*6/uL Hgb 14.2 (13.0-17.0) g/dL Hct 40.5 (39.6-50.0) % MCV 85.4 (80.0-97.0) fL MCH 30.0 (27.0-32.0) pg MCHC 35.1 (32.0-37.0) g/dL Plt Count 289 (140-440) 10*3/uL MPV 10.2 (9.5-12.2) fL Immature Gran % (Auto) 0.3 % Neutrophils % 68.3 % Lymphocytes % 19.4 % Monocytes % 9.3 % Eosinophils % 2.1 % Basophils % 0.6 % Immature Gran # 0.03 (0.00-0.04) 10*3/uL Neutrophils # 6.04 (1.80-7.70) 10*3/uL Lymphocytes # 1.72 (0.90-5.00) 10*3/uL Monocytes # 0.82 (0.20-1.00) 10*3/uL Eosinophils # 0.19 (0.04-0.35) 10*3/uL Basophils # 0.05 (0.00-0.10) 10*3/uL PT 10.0 (10.0-12.5) sec INR 0.9 (<1.2) APTT 24.7 (22.0-30.0) sec Sodium 136 L (137-145) mmol/L Potassium 3.8 (3.5-5.1) mmol/L Chloride 101 (98-107) mmol/L Carbon Dioxide 25 (22-30) mmol/L Anion Gap 10 mmol/L BUN 22 H (9-20) mg/dL Creatinine 1.03 (0.66-1.25) mg/dL Est GFR (CKD-EPI)AfAm 89 (>60 ml/min/1.73 sqM) Est GFR (CKD-EPI)NonAf 77 (>60 ml/min/1.73 sqM) Glucose 92 (74-99) mg/dL Calcium 9.9 (8.4-10.2) mg/dL Magnesium 1.9 (1.6-2.3) mg/dL Total Bilirubin 0.7 (0.2-1.3) mg/dL AST 46 (17-59) U/L ALT 46 (4-49) U/L Alkaline Phosphatase 95 (38-126) U/L Troponin I (0.000-0.034) ng/mL Total Protein 7.2 (6.3-8.2) g/dL Albumin 4.5 (3.5-5.0) g/dL 03/12/25 Range/Units 19:04 WBC (4.50-10.00) 10*3/uL RBC (4.40-5.60) 10*6/uL Hgb (13.0-17.0) g/dL Hct (39.6-50.0) % MCV (80.0-97.0) fL MCH (27.0-32.0) pg MCHC (32.0-37.0) g/dL Plt Count (140-440) 10*3/uL MPV (9.5-12.2) fL Immature Gran % (Auto) % Neutrophils % % Lymphocytes % % Monocytes % % Eosinophils % % Basophils % % Immature Gran # (0.00-0.04) 10*3/uL Neutrophils # (1.80-7.70) 10*3/uL Lymphocytes # (0.90-5.00) 10*3/uL Monocytes # (0.20-1.00) 10*3/uL Eosinophils # (0.04-0.35) 10*3/uL Basophils # (0.00-0.10) 10*3/uL PT (10.0-12.5) sec INR (<1.2) APTT (22.0-30.0) sec Sodium (137-145) mmol/L Potassium (3.5-5.1) mmol/L Chloride (98-107) mmol/L Carbon Dioxide (22-30) mmol/L Anion Gap mmol/L BUN (9-20) mg/dL Creatinine (0.66-1.25) mg/dL Est GFR (CKD-EPI)AfAm (>60 ml/min/1.73 sqM) Est GFR (CKD-EPI)NonAf (>60 ml/min/1.73 sqM) Glucose (74-99) mg/dL Calcium (8.4-10.2) mg/dL Magnesium (1.6-2.3) mg/dL Total Bilirubin (0.2-1.3) mg/dL AST (17-59) U/L ALT (4-49) U/L Alkaline Phosphatase (38-126) U/L Troponin I <0.012 (0.000-0.034) ng/mL Total Protein (6.3-8.2) g/dL Albumin (3.5-5.0) g/dL Critical Care Time Critical Care Time: Yes Total Critical Care Time: 35 <Jose Antonio Edward - Last Filed: 03/12/25 22:12> Disposition <Cris Dejesus - Last Filed: 03/12/25 18:41> Is patient prescribed a controlled substance at d/c from ED?: No Time of Disposition: 21:17 <Jose Antonio Edward - Last Filed: 03/12/25 22:12> Clinical Impression: Pulmonary embolism Disposition: HOME SELF-CARE Condition: Stable Instructions (If sedation given, give patient instructions): Pulmonary Embolism (ED) Additional Instructions: Please return to the Emergency Department if symptoms worsen or any other concerns. Prescriptions: Apixaban [Eliquis Starter Pack (for VTE)] 0 mg PO DIRECTED 30 Days #1 packet Referrals: Pamela Temple MD [Primary Care Provider] - 1-2 days
[2025-03-12 19:10] LABS: Basophils # (A) 0.05 10*3/uL (0.00-0.10); Basophils % (A) 0.6 %; Eosinophils # (A) 0.19 10*3/uL (0.04-0.35); Eosinophils % (A) 2.1 %; HCT 40.5 % (39.6-50.0); HGB 14.2 g/dL (13.0-17.0); Lymphocytes # (A) 1.72 10*3/uL (0.90-5.00); Lymphocytes % (A) 19.4 %; MCHC 35.1 g/dL (32.0-37.0); MCV 85.4 fL (80.0-97.0); Mean Platelet Volume 10.2 fL (9.5-12.2); Monocytes # (A) 0.82 10*3/uL (0.20-1.00); Monocytes % (A) 9.3 %; Neutrophils # (A) 6.04 10*3/uL (1.80-7.70); Neutrophils % (A) 68.3 %; Platelet Count 289 10*3/uL (140-440); RBC 4.74 10*6/uL (4.40-5.60); WBC 8.85 10*3/uL (4.50-10.00)
[2025-03-12 19:22] LABS: ALT 46 U/L (4-49); African American GFR (CKD) 89 (>60 ml/min/1.73 sqM); Albumin 4.5 g/dL (3.5-5.0); Anion Gap 10 mmol/L; Blood Urea Nitrogen 22 mg/dL (9-20); Calcium 9.9 mg/dL (8.4-10.2); Carbon Dioxide 25 mmol/L (22-30); Chloride 101 mmol/L (98-107); Glucose 92 mg/dL (74-99); Non-African American GFR(CKD) 77 (>60 ml/min/1.73 sqM); Sodium 136 mmol/L (137-145); Total Bilirubin 0.7 mg/dL (0.2-1.3); Total Protein 7.2 g/dL (6.3-8.2)
[2025-03-12 19:25] LABS: INR 0.9 (<1.2); Partial Thromboplastin Time 24.7 sec (22.0-30.0)
[2025-03-12 19:28] VITALS: RESP 18; TEMP 97.9
[2025-03-12 19:34] LABS: Magnesium 1.9 mg/dL (1.6-2.3); Potassium 3.8 mmol/L (3.5-5.1)
[2025-03-12 19:35] LABS: AST 46 U/L (17-59); Alkaline Phosphatase 95 U/L (38-126)
--- NOTE | 2025-03-12 20:11 | US ---
EXAMINATION TYPE: US venous doppler duplex LE BI DATE OF EXAM: 03/12/2025 8:06 PM COMPARISON: NONE CLINICAL INDICATION: Male, 64 years old with history of PE, swelling; PE. patient states no swelling or pain, Pain TECHNIQUE: The lower extremity deep venous system is examined utilizing real time linear array sonog wesley with graded compression, color doppler sonography, and spectral doppler. SIDE PERFORMED: Bilateral FINDINGS: VESSELS IMAGED: Common Femoral Vein Deep Femoral Vein Greater Saphenous Vein * Femoral Vein Popliteal Vein Small Saphenous Vein * Proximal Calf Veins (* superficial vessels) Right Leg: Negative for DVT, Color Doppler imaging shows patency of the vessels. Spectral waveforms are within normal limits. Left Leg: Negative for DVT, Color Doppler imaging shows patency of the vessels. Spectral waveforms a re within normal limits. IMPRESSION: No ultrasound evidence for deep venous thrombosis. [facility], , 03/12/2025 8:09 PM
[2025-03-12 21:01] VITALS: BP 124/98; PULSE 76
[2025-03-12] MEDS: APIXABAN 5 MG TAB PO STA (21:25)
== END 2025-03-12 21:33 | disposition home or self-care (01) ==
LOC: EC 18:30
DX: I26.99 Other pulmonary embolism without acute cor pulmonale (principal); Z85.05 Personal history of malignant neoplasm of liver; Z87.891 Personal history of nicotine dependence
CPT/HCPCS: 36415; 80053; 83735; 84484; 85025; 85610; 85730; 93005; 93970; 99291